=== PATIENT | male | born 1985 | race Caucasian/White ===

== ENCOUNTER 2018-04-21 01:21 | Inpatient (IN) | payer OTHER, MEDICAID ==
[2018-04-21] VITALS (17 sets, daily range): BP systolic 81–130; BP diastolic 50–73; PULSE 90–123; RESP 16–26; TEMP 97.7–99; O2SAT 95–100
[~2018-04-21] VITALS: Ht 193 cm; Wt 118.6 kg
[2018-04-21] MEDS ORDERED: ROCURONIUM INJ 50 MG/5 ML VIAL ONE ×2 (01:54→02:28)
[2018-04-21 01:59] LABS: AUTOMATED NEUTROPHIL # 4.5 TH/MM3 (1.8-7.7); BASOPHIL % 0.7 % (0.0-2.0); EOSINOPHIL % 0.6 % (0.0-4.0); HEMATOCRIT 27.1 % (39.0-51.0); HEMOGLOBIN 9.1 GM/DL (13.0-17.0); LYMPH % 26.1 % (9.0-44.0); LYMPHOCYTE # 1.7 TH/MM3 (1.0-4.8); MEAN CELL VOLUME 94.9 FL (80.0-100.0); MEAN CORPUSCULAR HEMOGLOBIN 31.8 PG (27.0-34.0); MEAN CORPUSCULAR HGB CONC 33.5 % (32.0-36.0); MEAN PLATELET VOLUME 8.4 FL (7.0-11.0); MONO % 4.5 % (0.0-8.0); MONOCYTE # 0.3 TH/MM3 (0-0.9); NEUT % 68.1 % (16.0-70.0); PLATELET COUNT 103 TH/MM3 (150-450); RED BLOOD COUNT 2.85 MIL/MM3 (4.50-5.90); RED CELL DISTRIBUTION WIDTH 13.6 % (11.6-17.2); WHITE BLOOD COUNT 6.6 TH/MM3 (4.0-11.0)
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
[2018-04-21] MEDS ORDERED: PROPOFOL 1000 MG/100 ML INJ 100 ML ONE (02:27)
[2018-04-21 02:41] LABS: INTERNATIONAL NORMALIZED RATIO 1.8 RATIO; PROTHROMBIN TIME - PATIENT 18.7 SEC (9.8-11.6)
[2018-04-21] MEDS ORDERED: IOHEXOL 350 MG/ML 10 ML VIAL (for RAD DIAG) IVCONTRAST ONE (02:45)
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
[2018-04-21] MEDS ORDERED: HEPARIN SODIUM - SQ 10,000 UNITS/ML VIAL ONE ×2 (02:57→04:32)
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
[2018-04-21] MEDS ORDERED: CHLORHEXIDINE GLUCONATE 2 % 1 PACK (2 CLOTHS) TOP PRN (03:30)
[2018-04-21] MEDS ORDERED: LACTULOSE SYRUP 20 GM/30 ML CUP PO PRN (03:30)
[2018-04-21] MEDS ORDERED: MAGNESIUM HYDROXIDE SUSP 30 ML CUP PO PRN (03:30)
[2018-04-21] MEDS ORDERED: BISACODYL 10 MG SUPP RECTAL PRN (03:30)
[2018-04-21] MEDS ORDERED: NURSING INFORMATION XX SCH (03:30)
[2018-04-21] MEDS ORDERED: SENNOSIDES 8.6 MG TAB PO PRN (03:30)
[2018-04-21] MEDS ORDERED: PROPOFOL 1000 MG/100 ML INJ 100 ML IV PRN (03:45)
[2018-04-21] MEDS ORDERED: fentaNYL DRIP 250 ML IV PRN ×2 (03:45→11:45)
[2018-04-21 03:57] LABS: AUTOMATED NEUTROPHIL # 5.5 TH/MM3 (1.8-7.7); BASOPHIL % 0.2 % (0.0-2.0); EOSINOPHIL % 0.4 % (0.0-4.0); HEMATOCRIT 27.2 % (39.0-51.0); HEMOGLOBIN 9.2 GM/DL (13.0-17.0); LYMPHOCYTE # 0.6 TH/MM3 (1.0-4.8); MEAN CELL VOLUME 88.2 FL (80.0-100.0); MEAN CORPUSCULAR HEMOGLOBIN 29.9 PG (27.0-34.0); MEAN PLATELET VOLUME 7.6 FL (7.0-11.0); MONO % 2.4 % (0.0-8.0); MONOCYTE # 0.1 TH/MM3 (0-0.9); PLATELET COUNT 116 TH/MM3 (150-450); RED BLOOD COUNT 3.08 MIL/MM3 (4.50-5.90); RED CELL DISTRIBUTION WIDTH 15.1 % (11.6-17.2); WHITE BLOOD COUNT 6.2 TH/MM3 (4.0-11.0)
[2018-04-21] MEDS ORDERED: cefTRIAXone INJ 2,000 MG in SODIUM CHLORIDE 0.9% INJ 100 ML IV SCH (04:00)
[2018-04-21] MEDS: CHLORHEXIDINE GLUCONATE 2 % 1 PACK (2 CLOTHS) TOP SCH (04:00)
[2018-04-21 04:07] LABS: INTERNATIONAL NORMALIZED RATIO 1.2 RATIO; PROTHROMBIN TIME - PATIENT 12.6 SEC (9.8-11.6)
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
[2018-04-21] MEDS ORDERED: PROTAMINE SULFATE 50 MG/5 ML VIAL ONE (04:32)
[2018-04-21] MEDS ORDERED: CALCIUM CHLORIDE 10% SOLN 1 GRAM/10 ML SYR ONE (04:51)
[2018-04-21 04:59] LABS: BICARBONATE 20.8 MEQ/L (21.0-32.0); CALCIUM 5.9 MG/DL (8.5-10.1); CREATININE 1.32 MG/DL (0.60-1.30)
[2018-04-21] MEDS ORDERED: VECURONIUM BROMIDE 20 MG VIAL ONE (05:18)
[2018-04-21 05:20] LABS: TOTAL PROTEIN 5.2 GM/DL (6.4-8.2)
[2018-04-21 05:26] LABS: CALCIUM-PROTEIN CORRECTED 6.7 MG/DL (8.5-10.1)
[2018-04-21] MEDS ORDERED: TRANEXAMIC ACID INJ 1,000 MG/10 ML AMP ONE (05:36)
[2018-04-21] MEDS ORDERED: RESP: ALBUTEROL 2.5 MG/IPRATROPIUM 0.5 MG NEB (PRN) NEB (06:30)
[2018-04-21] MEDS ORDERED: GLUCAGON 1 MG/ML VIAL OTHER PRN (06:30)
[2018-04-21] MEDS ORDERED: DEXTROSE 50% IN WATER 50 ML VIAL(D50) IV PUSH PRN (06:30)
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
[2018-04-21 07:10] LABS: HEMATOCRIT 25.9 % (39.0-51.0); MEAN CORPUSCULAR HEMOGLOBIN 29.4 PG (27.0-34.0); MEAN CORPUSCULAR HGB CONC 34.6 % (32.0-36.0); MEAN PLATELET VOLUME 7.5 FL (7.0-11.0); PLATELET COUNT 106 TH/MM3 (150-450); RED BLOOD COUNT 3.05 MIL/MM3 (4.50-5.90); RED CELL DISTRIBUTION WIDTH 14.8 % (11.6-17.2); WHITE BLOOD COUNT 6.9 TH/MM3 (4.0-11.0)
[2018-04-21 07:23] LABS: INTERNATIONAL NORMALIZED RATIO 1.2 RATIO; PROTHROMBIN TIME - PATIENT 12.3 SEC (9.8-11.6)
[2018-04-21] MEDS ORDERED: MIDAZOLAM HCL 2 MG/2 ML VIAL ONE (07:25)
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
[2018-04-21 07:51] LABS: BICARBONATE 23.8 MEQ/L (21.0-32.0); CALCIUM 7.7 MG/DL (8.5-10.1); CREATININE 1.2 MG/DL (0.60-1.30)
[2018-04-21 07:59] LABS: BANDS 41 % (0-6); LYMPHOCYTES 2 % (9-44); MONOCYTES 4 % (0-8); NEUTROPHIL # MANUAL DIFF 6.5 TH/MM3 (1.8-7.7); POLYS (SEG NEUTROPHILS) 53 % (16-70)
[2018-04-21] MEDS: INSULIN NovoLIN REGULAR SUPPLEMENTAL SCALE SQ SCH ×4 (08:00→21:00)
[2018-04-21] MEDS: LACTULOSE SYRUP 20 GM/30 ML CUP PO SCH (09:00)
[2018-04-21] MEDS: DOCUSATE SODIUM 50 MG/SENNA 8.6 MG TAB PO SCH ×2 (09:00→20:58)
[2018-04-21] MEDS: FAMOTIDINE 20 MG/2 ML VIAL IV PUSH SCH ×2 (09:00→20:58)
[2018-04-21] MEDS ORDERED: IODIXANOL 320 MG/ML 50 ML VIAL (for RAD SPEC) I-ARTERIAL ONE (09:10)
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
[2018-04-21] MEDS ORDERED: NOREPINEPHRINE-DEXTROSE DRIP 250 ML IV PRN ×2 (09:45→11:45)
[2018-04-21] MEDS ORDERED: TERBUTALINE INJ 1 MG/ML AMP SQ PRN (09:45)
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
[2018-04-21 10:14] LABS: HEMATOCRIT 31.2 % (39.0-51.0); HEMOGLOBIN 10.7 GM/DL (13.0-17.0); MEAN CELL VOLUME 82.9 FL (80.0-100.0); MEAN CORPUSCULAR HEMOGLOBIN 28.5 PG (27.0-34.0); MEAN CORPUSCULAR HGB CONC 34.3 % (32.0-36.0); MEAN PLATELET VOLUME 7.7 FL (7.0-11.0); PLATELET COUNT 73 TH/MM3 (150-450); RED BLOOD COUNT 3.76 MIL/MM3 (4.50-5.90); RED CELL DISTRIBUTION WIDTH 15.3 % (11.6-17.2); WHITE BLOOD COUNT 4.8 TH/MM3 (4.0-11.0)
[2018-04-21] MEDS ORDERED: PROPOFOL 500 MG/50 ML INJ 50 ML ONE (10:21)
[2018-04-21 10:22] LABS: INTERNATIONAL NORMALIZED RATIO 1.3 RATIO; PROTHROMBIN TIME - PATIENT 13.4 SEC (9.8-11.6)
--- NOTE | 2018-04-21 10:31 | PD.ORT.PN ---
Subjective Subjective Remarks POD 0 s/p exfix pelvis and exfix left knee intubated/sedated Objective Vitals Vital Signs Date Time Temp Pulse Resp B/P (MAP) Pulse Ox O2 Delivery O2 Flow Rate FiO2 04/21/18 03:05 100 100 04/21/18 02:20 100 100 04/21/18 02:15 100 100 04/21/18 01:25 100 15.00 100 I/O 04/20/18 04/20/18 04/20/18 04/21/18 04/21/18 04/21/18 07:00 15:00 23:00 07:00 15:00 23:00 Intake Total 7000 ml Output Total 2400 ml Balance 4600 ml Intake Other 7000 ml Output Urine Total 2400 ml Result Diagram: 04/21/18 0958 04/21/18 0640 Other Results Laboratory Tests Test 04/21/18 01:45 04/21/18 03:50 04/21/18 06:40 04/21/18 09:41 Prothromb Time International Ratio 1.8 RATIO 1.2 RATIO 1.2 RATIO 1.3 RATIO Prothrombin Time 18.7 SEC (9.8-11.6) 12.6 SEC (9.8-11.6) 12.3 SEC (9.8-11.6) 13.4 SEC (9.8-11.6) Imaging Last [address] 04/21/18149 Signed Impressions: CONCLUSION: 1. No acute thoracic spine injury identified. Maxillofacial CT 04/21/18149 Signed Impressions: CONCLUSION: 1. Right frontal calvarial fracture and numerous facial fractures as above, re latively nondisplaced. Lumbar Spine CT 04/21/18149 Signed Impressions: CONCLUSION: 1. Left-sided L4 and L5 transverse process fractures. No vertebral body fractu re or subluxation. Pelvic fractures as above. Head CT 04/21/18123 Signed Impressions: CONCLUSION: 1. Right frontal skull fracture extending through right frontal sinus with pne umocephalus as above. No significant intracranial hemorrhage or mass effect. Ri ght-sided scalp hemorrhage. Femur X-Ray 04/21/18123 Signed Impressions: CONCLUSION: No femur fracture identified. Displaced left pubic and rami fractures with altamirano tasis at sacroiliac joints. Chest CT 04/21/18123 Signed Impressions: CONCLUSION: 1. Negative for acute intrathoracic injury. Endotracheal tube in good position . Air in the thoracic spinal canal. Cervical Spine CT 04/21/18123 Signed Impressions: CONCLUSION: 1. Negative for acute cervical spine fracture. No subluxation. Abdomen/Pelvis CT 04/21/18123 Signed Impressions: CONCLUSION: 1. Severe bilateral pelvic fractures as above with bilateral sacroiliac diasta ses. Large right pelvic sidewall hematoma with active extravasation. 2. Extensive air in the superficial and deep soft tissues likely related to op en wound anteriorly. There also appears to be some air within venous structures . Air within the spinal canal could be within venous structures or may have dis sected cephalad from inferior open wound. Pelvis X-Ray 04/21/18121 Signed Impressions: CONCLUSION: Bilateral pelvic fractures as above. Chest X-Ray 04/21/18121 Signed Impressions: CONCLUSION: Endotracheal tube in good position. No acute findings. Left costophrenic phreni c angle clipped. Knee X-Ray 04/21/18 Signed Impressions: CONCLUSION: Avulsion fracture left distal femur or patella. Left fibular head fracture. Abdomen X-Ray 04/21/18 Signed Impressions: CONCLUSION: 1. 2 retained surgical sponges projected over the sacrum and upper pelvis. 2. Multiple pelvic fractures with diastases of the symphysis pubis and sacroil iac joints. 3. Balloon pump in place as well as multiple embolization coils. These findings were called Katie in the operating room who stated that the surge on was aware of the retained sponges. Objective Remarks pelvis: exfix in place. pin sites clean LLE: exfix in place. pin sites clean. soft dressings in place. dressings in place over groin Assessment & Plan Assessment and Plan 1) Unstable pelvic ring disruption 2) Left Knee dislocation with popliteal artery disruption and multiple ligamentous disruptions 3) Open Left groin wound -pin care BID to pelvis and left leg external fixators -dressings to left leg per Dr Moyer protocol -Patient will need fixation of pelvis at later date when stable -will also knee left knee ligamentous reconstruction. this will be give to Dr Verduzco to evaluate. however, patient not in condition to proceed -NWB BLE -will follow Mane Chavez/Gastrointestinal Technician PA Apr 21, 2018 10:30
[2018-04-21] MEDS: CHLORHEXIDINE 0.12% (ORAL KIT) 15 ML CUP MT SCH ×2 (11:00→20:55)
[2018-04-21] MEDS ORDERED: NOREPINEPHRINE-DEXTROSE DRIP 250 ML IV ONE (11:19)
[2018-04-21] MEDS: LACTATED RINGER'S 1000 ML INJ 1,000 ML IV SCH ×6 (11:30→22:30)
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
[2018-04-21] MEDS ORDERED: NORMOSOL R INJ 1,000 ML IV ONE (12:00)
[2018-04-21] MEDS ORDERED: ROCURONIUM INJ 50 MG/5 ML SYRINGE IV PUSH ONE (12:00)
[2018-04-21] MEDS ORDERED: DEXAMETHASONE SOD PHOS 4 MG/ML VIAL IV ONE (12:00)
[2018-04-21] MEDS ORDERED: PROPOFOL 200 MG/20 ML AMP IV ONE (12:00)
[2018-04-21] MEDS ORDERED: PHENYLEPHRINE HCL 10 MG/ML VIAL IV ONE (12:00)
[2018-04-21] MEDS ORDERED: ceFAZolin INJ 1,000 MG VIAL IV ONE (12:00)
[2018-04-21] MEDS ORDERED: PHENYLEPH/NS 1000 MCG/10 ML SYR IV ONE (12:00)
[2018-04-21] MEDS ORDERED: VECURONIUM BROMIDE 20 MG VIAL IV ONE (12:00)
[2018-04-21 12:49] LABS: AUTOMATED NEUTROPHIL # 6.3 TH/MM3 (1.8-7.7); BASOPHIL % 0.1 % (0.0-2.0); HEMATOCRIT 35.2 % (39.0-51.0); LYMPH % 4.8 % (9.0-44.0); LYMPHOCYTE # 0.3 TH/MM3 (1.0-4.8); MEAN CELL VOLUME 84.4 FL (80.0-100.0); MEAN CORPUSCULAR HEMOGLOBIN 28.9 PG (27.0-34.0); MEAN CORPUSCULAR HGB CONC 34.2 % (32.0-36.0); MEAN PLATELET VOLUME 8.5 FL (7.0-11.0); MONO % 5.2 % (0.0-8.0); MONOCYTE # 0.4 TH/MM3 (0-0.9); NEUT % 89.9 % (16.0-70.0); PLATELET COUNT 96 TH/MM3 (150-450); RED BLOOD COUNT 4.17 MIL/MM3 (4.50-5.90); RED CELL DISTRIBUTION WIDTH 15.6 % (11.6-17.2)
[2018-04-21 13:04] LABS: INTERNATIONAL NORMALIZED RATIO 1.2 RATIO; PROTHROMBIN TIME - PATIENT 12.6 SEC (9.8-11.6)
[2018-04-21] MEDS: PROPOFOL 1000 MG/100 ML INJ 100 ML IV PRN ×3 (13:08→20:53)
[2018-04-21] MEDS: fentaNYL DRIP 250 ML IV PRN (13:12)
[2018-04-21 13:15] LABS: BICARBONATE 23.4 MEQ/L (21.0-32.0); CALCIUM 7.9 MG/DL (8.5-10.1); CREATININE 1.54 MG/DL (0.60-1.30)
[2018-04-21] MEDS: NOREPINEPHRINE-DEXTROSE DRIP 250 ML IV PRN ×2 (13:15→20:50)
[2018-04-21 13:28] LABS: BANDS 28 % (0-6); CORRECTED NUCLEATED RBC 1 /100 WBC (0-0); LYMPHOCYTES 2 % (9-44); METAMYELOCYTES 2 % (0-1); MONOCYTES 1 % (0-8); MYELOCYTES 1 % (0-0); NEUTROPHIL # MANUAL DIFF 6.8 TH/MM3 (1.8-7.7); NUCLEATED RED BLOOD CELL 1 (0-0); POLYS (SEG NEUTROPHILS) 66 % (16-70)
[2018-04-21 13:31] LABS: ACANTHOCYTES OCC (NORMAL)
[2018-04-21 13:32] LABS: LACTIC ACID SEPSIS PROTOCOL 9.9 mmol/L (0.4-2.0)
[2018-04-21] MEDS ORDERED: ACETAMINOPHEN 1000 MG/100 ML 100 ML IV PRN (14:00)
[2018-04-21] MEDS ORDERED: GENTAMICIN 80 MG PREMIX 100 ML IV SCH (15:00)
[2018-04-21] MEDS: RESP: ALBUTEROL 2.5 MG/IPRATROPIUM 0.5 MG NEB (SCH) NEB ×2 (15:35→20:29)
[2018-04-21] MEDS: levETIRAcetam INJ 500 MG in SODIUM CHLORIDE 0.9% INJ 100 ML IV SCH ×2 (15:50→20:58)
[2018-04-21] MEDS: ceFAZolin 2 GM PREMIX 50 ML IV SCH ×2 (15:50→21:08)
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
[2018-04-21 16:48] LABS: AUTOMATED NEUTROPHIL # 6.9 TH/MM3 (1.8-7.7); HEMATOCRIT 32.7 % (39.0-51.0); HEMOGLOBIN 11.2 GM/DL (13.0-17.0); LYMPH % 3.6 % (9.0-44.0); LYMPHOCYTE # 0.3 TH/MM3 (1.0-4.8); MEAN CELL VOLUME 84.1 FL (80.0-100.0); MEAN CORPUSCULAR HEMOGLOBIN 28.7 PG (27.0-34.0); MEAN CORPUSCULAR HGB CONC 34.1 % (32.0-36.0); MEAN PLATELET VOLUME 8.6 FL (7.0-11.0); MONO % 5.8 % (0.0-8.0); MONOCYTE # 0.4 TH/MM3 (0-0.9); NEUT % 90.6 % (16.0-70.0); PLATELET COUNT 77 TH/MM3 (150-450); RED BLOOD COUNT 3.89 MIL/MM3 (4.50-5.90); RED CELL DISTRIBUTION WIDTH 15.8 % (11.6-17.2); WHITE BLOOD COUNT 7.7 TH/MM3 (4.0-11.0)
[2018-04-21 16:54] LABS: INTERNATIONAL NORMALIZED RATIO 1.2 RATIO; PROTHROMBIN TIME - PATIENT 12.6 SEC (9.8-11.6)
--- NOTE | 2018-04-21 17:05 | PD.OP ---
Operative Report Date of Surgery: Apr 21, 2018 Preoperative Diagnosis: (1) Traumatic brain injury Traumatic brain injury Postoperative Diagnosis: (1) Traumatic brain injury Traumatic brain injury Procedure: Right frontal twist drill for ICP pressure monitor placement Anesthesia: IV Sedation 1% xylocaine local Surgeon: Sudheer Duvall Client Support Manager(s): none Operation and Findings: The procedure was performed in the surgical intensive care unit. The findings were discussed with the family and informed consent obtained. Appropriate timeout procedure was performed with all personnel present and in agreement The patient was given intravenous sedation during the procedure. The head of the bed was elevated 20 with the head and neck in neutral position. The right frontal area was shaved with clippers and sterilely prepped and draped. 1% Xylocaine with epinephrine was used for local infiltration over the small incision site which was made in the right frontal region approximately 1 cm anterior to the coronal suture in the mid pupillary line and carried sharply down to the cranium. The hand drill was used to place a single twist drill opening in the cranium and the dura was perforated with the 18-gauge spinal needle. The ICP bolt was secured to the cranium. The transducer was zeroed and placed intracranially and secured to the bolt. The patient's initial ICP was 2-3 cm water with good waveform. A sterile dressing was applied There is no significant bleeding The patient's neurologic exam remained stable following the procedure. Sudheer Duvall MD Apr 21, 2018 17:05
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
[2018-04-21 17:18] LABS: BICARBONATE 20.1 MEQ/L (21.0-32.0); CALCIUM 7.4 MG/DL (8.5-10.1); CREATININE 1.72 MG/DL (0.60-1.30)
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
[2018-04-21 17:45] LABS: CALCIUM-PROTEIN CORRECTED 8.8 MG/DL (8.5-10.1); TOTAL PROTEIN 4.6 GM/DL (6.4-8.2)
[2018-04-21] MEDS: GENTAMICIN INJ 80 MG in SODIUM CHLORIDE 0.9% INJ 100 ML IV SCH (17:45)
[2018-04-21 18:03] LABS: BANDS 45 % (0-6); LYMPHOCYTES 3 % (9-44); NEUTROPHIL # MANUAL DIFF 7.5 TH/MM3 (1.8-7.7); POLYS (SEG NEUTROPHILS) 52 % (16-70)
[2018-04-21 20:55] LABS: AUTOMATED NEUTROPHIL # 6.4 TH/MM3 (1.8-7.7); BASOPHIL % 0.1 % (0.0-2.0); HEMATOCRIT 25.6 % (39.0-51.0); HEMOGLOBIN 8.9 GM/DL (13.0-17.0); LYMPH % 3.9 % (9.0-44.0); LYMPHOCYTE # 0.3 TH/MM3 (1.0-4.8); MEAN CELL VOLUME 83.5 FL (80.0-100.0); MEAN CORPUSCULAR HGB CONC 34.8 % (32.0-36.0); MEAN PLATELET VOLUME 8.6 FL (7.0-11.0); MONO % 4.4 % (0.0-8.0); MONOCYTE # 0.3 TH/MM3 (0-0.9); NEUT % 91.6 % (16.0-70.0); PLATELET COUNT 80 TH/MM3 (150-450); RED BLOOD COUNT 3.06 MIL/MM3 (4.50-5.90); RED CELL DISTRIBUTION WIDTH 15.8 % (11.6-17.2)
[2018-04-21 20:59] LABS: INTERNATIONAL NORMALIZED RATIO 1.2 RATIO
[2018-04-21 21:05] LABS: BICARBONATE 21.1 MEQ/L (21.0-32.0); CALCIUM 7.3 MG/DL (8.5-10.1); CREATININE 1.89 MG/DL (0.60-1.30)
[2018-04-21 21:17] LABS: CALCIUM-PROTEIN CORRECTED 8.5 MG/DL (8.5-10.1); TOTAL PROTEIN 4.9 GM/DL (6.4-8.2)
[2018-04-21 22:32] LABS: BANDS 37 % (0-6); LYMPHOCYTES 2 % (9-44); MONOCYTES 3 % (0-8); NEUTROPHIL # MANUAL DIFF 6.7 TH/MM3 (1.8-7.7); POLYS (SEG NEUTROPHILS) 58 % (16-70)
[2018-04-21] MEDS ORDERED: SODIUM CHLOR 0.9% 1000 ML INJ 1,000 ML IV ONE (23:30)
[2018-04-22] VITALS (21 sets, daily range): BP systolic 112–138; BP diastolic 47–57; PULSE 79–96; RESP 18; TEMP 96.8–100.2; O2SAT 97–100
[2018-04-22] MEDS ORDERED: LIDOCAINE 2%/EPINEPHrine 1:100,000 20ML MDV I-DERMAL SCH
[2018-04-22 00:28] LABS: AUTOMATED NEUTROPHIL # 6.4 TH/MM3 (1.8-7.7); BASOPHIL % 0.1 % (0.0-2.0); HEMATOCRIT 26.2 % (39.0-51.0); HEMOGLOBIN 9.3 GM/DL (13.0-17.0); LYMPH % 4.7 % (9.0-44.0); LYMPHOCYTE # 0.3 TH/MM3 (1.0-4.8); MEAN CELL VOLUME 83.8 FL (80.0-100.0); MEAN CORPUSCULAR HEMOGLOBIN 29.7 PG (27.0-34.0); MEAN CORPUSCULAR HGB CONC 35.4 % (32.0-36.0); MEAN PLATELET VOLUME 8.2 FL (7.0-11.0); MONO % 4.9 % (0.0-8.0); MONOCYTE # 0.3 TH/MM3 (0-0.9); NEUT % 90.3 % (16.0-70.0); PLATELET COUNT 59 TH/MM3 (150-450); RED BLOOD COUNT 3.12 MIL/MM3 (4.50-5.90); RED CELL DISTRIBUTION WIDTH 15.1 % (11.6-17.2); WHITE BLOOD COUNT 7.1 TH/MM3 (4.0-11.0)
[2018-04-22] MEDS: PROPOFOL 1000 MG/100 ML INJ 100 ML IV PRN ×5 (00:31→20:39)
[2018-04-22] MEDS: GENTAMICIN INJ 80 MG in SODIUM CHLORIDE 0.9% INJ 100 ML IV SCH ×3 (00:31→17:41)
[2018-04-22 00:52] LABS: INTERNATIONAL NORMALIZED RATIO 1.3 RATIO; PROTHROMBIN TIME - PATIENT 13.2 SEC (9.8-11.6)
[2018-04-22 00:59] LABS: BICARBONATE 20.5 MEQ/L (21.0-32.0); CALCIUM 6.5 MG/DL (8.5-10.1); CREATININE 1.78 MG/DL (0.60-1.30)
[2018-04-22 01:13] LABS: TOTAL PROTEIN 4.2 GM/DL (6.4-8.2)
[2018-04-22 01:18] LABS: BANDS 20 % (0-6); LYMPHOCYTES 6 % (9-44); NEUTROPHIL # MANUAL DIFF 6.7 TH/MM3 (1.8-7.7); POLYS (SEG NEUTROPHILS) 74 % (16-70)
[2018-04-22 01:20] LABS: DOHLE BODIES PRESENT (NONE SEEN); TOXIC VACUOLATION PRESENT (NONE SEEN)
[2018-04-22] MEDS ORDERED: SODIUM CHLORID 0.9% 500 ML INJ 500 ML IV ONE (02:30)
[2018-04-22] MEDS ORDERED: CALCIUM GLUCONATE INJ 1 GM in SODIUM CHLORIDE 0.9% INJ 100 ML IV ONE (02:30)
[2018-04-22] MEDS: RESP: ALBUTEROL 2.5 MG/IPRATROPIUM 0.5 MG NEB (SCH) NEB ×4 (02:54→20:46)
[2018-04-22] MEDS: CHLORHEXIDINE GLUCONATE 2 % 1 PACK (2 CLOTHS) TOP SCH (03:35)
[2018-04-22 04:22] LABS: AUTOMATED NEUTROPHIL # 9.1 TH/MM3 (1.8-7.7); BASOPHIL % 0.1 % (0.0-2.0); HEMATOCRIT 26.8 % (39.0-51.0); HEMOGLOBIN 9.4 GM/DL (13.0-17.0); LYMPH % 4.4 % (9.0-44.0); LYMPHOCYTE # 0.4 TH/MM3 (1.0-4.8); MEAN CELL VOLUME 83.4 FL (80.0-100.0); MEAN CORPUSCULAR HEMOGLOBIN 29.3 PG (27.0-34.0); MEAN CORPUSCULAR HGB CONC 35.2 % (32.0-36.0); MEAN PLATELET VOLUME 7.8 FL (7.0-11.0); MONO % 3.1 % (0.0-8.0); MONOCYTE # 0.3 TH/MM3 (0-0.9); NEUT % 92.4 % (16.0-70.0); PLATELET COUNT 108 TH/MM3 (150-450); RED BLOOD COUNT 3.22 MIL/MM3 (4.50-5.90); RED CELL DISTRIBUTION WIDTH 15.3 % (11.6-17.2); WHITE BLOOD COUNT 9.8 TH/MM3 (4.0-11.0)
[2018-04-22 04:33] LABS: INTERNATIONAL NORMALIZED RATIO 1.3 RATIO; PROTHROMBIN TIME - PATIENT 13.4 SEC (9.8-11.6)
--- NOTE | 2018-04-22 04:55 | RADRPT ---
EXAM DATE: 04/22/2018 4:31 AM EDT AGE/SEX: 32 years / Male INDICATIONS: Shortness of breath CLINICAL DATA: This is the patient's subsequent encounter. Patient reports that signs and symptoms h ave been present for 2 days and indicates a pain score of Nonresponsive. MEDICAL/SURGICAL HISTORY: None. None. COMPARISON: [facility] [place], CHEST SINGLE AP, 04/21/2018. . FINDINGS: The ET tube, NG tube and right subclavian line are well placed. The heart size is normal. The lungs a re clear. CONCLUSION: No acute abnormality is seen. Electronically signed by: Bib Chu MD 04/22/2018 4:54 AM EDT
[2018-04-22 04:58] LABS: CALCIUM 6.4 MG/DL (8.5-10.1); CREATININE 2.06 MG/DL (0.60-1.30); MAGNESIUM 1.7 MG/DL (1.5-2.5)
[2018-04-22] MEDS: fentaNYL DRIP 250 ML IV PRN ×2 (05:01→17:39)
[2018-04-22] MEDS: ceFAZolin 2 GM PREMIX 50 ML IV SCH ×3 (05:05→20:38)
[2018-04-22 05:11] LABS: CALCIUM-PROTEIN CORRECTED 7.9 MG/DL (8.5-10.1); TOTAL PROTEIN 4.1 GM/DL (6.4-8.2)
[2018-04-22] MEDS ORDERED: LIDOCAINE 1%/EPINEPHrine 1:100,000 SOLN 30 ML VIAL ONE (07:40)
[2018-04-22] MEDS: CHLORHEXIDINE 0.12% (ORAL KIT) 15 ML CUP MT SCH ×2 (07:43→20:39)
[2018-04-22] MEDS: INSULIN NovoLIN REGULAR SUPPLEMENTAL SCALE SQ SCH ×4 (07:43→20:40)
[2018-04-22] MEDS: levETIRAcetam INJ 500 MG in SODIUM CHLORIDE 0.9% INJ 100 ML IV SCH ×2 (07:44→20:39)
[2018-04-22] MEDS: DOCUSATE SODIUM 50 MG/SENNA 8.6 MG TAB PO SCH ×2 (07:44→20:39)
[2018-04-22] MEDS: LACTULOSE SYRUP 20 GM/30 ML CUP PO SCH (07:44)
[2018-04-22] MEDS: FAMOTIDINE 20 MG/2 ML VIAL IV PUSH SCH ×2 (07:44→20:39)
--- NOTE | 2018-04-22 08:16 | PD.ORT.PN ---
Subjective Subjective Remarks Patient in ISC. Intubated Objective Vitals Vital Signs Date Time Temp Pulse Resp B/P (MAP) Pulse Ox O2 Delivery O2 Flow Rate FiO2 04/22/18 08:02 97 35 04/22/18 07:00 97 Mechanical Ventilator 35 04/22/18 06:00 96 04/22/18 04:30 98 35 04/22/18 04:00 35 04/22/18 04:00 97.9 89 18 129/56 (80) 97 04/22/18 04:00 89 04/22/18 03:40 97.5 89 18 128/53 98 04/22/18 02:33 96.8 82 18 112/51 100 04/22/18 02:00 80 04/22/18 00:00 35 04/22/18 00:00 97.3 83 18 114/57 (76) 100 04/22/18 00:00 83 04/21/18 23:37 100 35 04/21/18 22:00 90 04/21/18 20:50 97 137/65 04/21/18 20:26 100 40 04/21/18 20:16 98.4 99 18 130/73 100 04/21/18 20:00 98.2 98 18 122/68 (86) 100 04/21/18 20:00 98 04/21/18 20:00 40 04/21/18 19:00 100 Mechanical Ventilator 40 04/21/18 18:51 98.8 104 19 96/60 100 04/21/18 18:38 98.8 104 19 99/61 100 04/21/18 17:47 98.8 107 18 81/50 100 04/21/18 17:28 99.0 110 18 82/56 99 04/21/18 17:00 40 04/21/18 16:00 98.9 113 16 82/54 (63) 96 04/21/18 15:36 95 40 04/21/18 13:20 40 04/21/18 13:15 123 86/54 04/21/18 12:10 99 45 04/21/18 12:00 97.7 123 26 109/61 (77) 100 04/21/18 12:00 45 04/21/18 10:20 75 04/21/18 10:00 100 I/O 6/1/18 6/104/21/18 04/22/18 04/22/18 04/22/18 07:00 15:00 23:00 07:00 15:00 23:00 Intake Total 8050 ml 4662 ml 5398 ml Output Total 3400 ml 715 ml Balance 4650 ml 4662 ml 4683 ml Intake IV Total 1050 ml 3354 ml 2212 ml Packed Cells 1200 ml FFP 643 ml Platelets 289 ml 486 ml Cryoprecipitate 216 ml Blood Product IV Normal Saline Flush 160 ml 1500 ml Other 7000 ml Output Urine Total 2900 ml 15 ml Stool Total 0 ml Gastric Drainage Total 0 ml Drainage Total 500 ml 700 ml Result Diagram: 04/22/18 0400 04/22/18 0400 Other Results Laboratory Tests Test 04/21/18 09:41 04/21/18 12:00 04/21/18 16:20 04/21/18 20:15 Prothromb Time International Ratio 1.3 RATIO 1.2 RATIO 1.2 RATIO 1.2 RATIO Prothrombin Time 13.4 SEC (9.8-11.6) 12.6 SEC (9.8-11.6) 12.6 SEC (9.8-11.6) 12.0 SEC (9.8-11.6) Test 04/22/18 00:15 04/22/18 04:00 Prothromb Time International Ratio 1.3 RATIO 1.3 RATIO Prothrombin Time 13.2 SEC (9.8-11.6) 13.4 SEC (9.8-11.6) Imaging Last 24 hours Impressions [address] Spine CT 04/21/18149 Signed Impressions: CONCLUSION: 1. No acute thoracic spine injury identified. Maxillofacial CT 04/21/18149 Signed Impressions: CONCLUSION: 1. Right frontal calvarial fracture and numerous facial fractures as above, re latively nondisplaced. Lumbar Spine CT 04/21/18149 Signed Impressions: CONCLUSION: 1. Left-sided L4 and L5 transverse process fractures. No vertebral body fractu re or subluxation. Pelvic fractures as above. Head CT 04/21/18123 Signed Impressions: CONCLUSION: 1. Right frontal skull fracture extending through right frontal sinus with pne umocephalus as above. No significant intracranial hemorrhage or mass effect. Ri ght-sided scalp hemorrhage. Femur X-Ray 04/21/18123 Signed Impressions: CONCLUSION: No femur fracture identified. Displaced left pubic and rami fractures with altamirano tasis at sacroiliac joints. Chest CT 04/21/18123 Signed Impressions: CONCLUSION: 1. Negative for acute intrathoracic injury. Endotracheal tube in good position . Air in the thoracic spinal canal. Cervical Spine CT 04/21/18123 Signed Impressions: CONCLUSION: 1. Negative for acute cervical spine fracture. No subluxation. Abdomen/Pelvis CT 04/21/18123 Signed Impressions: CONCLUSION: 1. Severe bilateral pelvic fractures as above with bilateral sacroiliac diasta ses. Large right pelvic sidewall hematoma with active extravasation. 2. Extensive air in the superficial and deep soft tissues likely related to op en wound anteriorly. There also appears to be some air within venous structures . Air within the spinal canal could be within venous structures or may have dis sected cephalad from inferior open wound. Pelvis X-Ray 04/21/18121 Signed Impressions: CONCLUSION: Bilateral pelvic fractures as above. Chest X-Ray 04/21/18121 Signed Impressions: CONCLUSION: Endotracheal tube in good position. No acute findings. Left costophrenic phreni c angle clipped. Knee X-Ray 04/21/18 Signed Impressions: CONCLUSION: Avulsion fracture left distal femur or patella. Left fibular head fracture. Abdomen X-Ray 04/21/18 Signed Impressions: CONCLUSION: 1. 2 retained surgical sponges projected over the sacrum and upper pelvis. 2. Multiple pelvic fractures with diastases of the symphysis pubis and sacroil iac joints. 3. Balloon pump in place as well as multiple embolization coils. These findings were called Katie in the operating room who stated that the surge on was aware of the retained sponges. Objective Remarks pelvis: exfix in place. pin sites clean LLE: exfix in place. pin sites clean. soft dressings in place. dressings in place over groin Left upper extremity no crepitus or significant swelling of the shoulder elbow or wrist. Mild swelling of the left elbow but no instability or crepitus. Right upper extremity: No crepitus or significant swelling of the shoulder, elbow or wrist. Right lower extremity no abnormal swelling of the hip. Mild effusion of the right knee but no instability or crepitus. No crepitus of the ankle Assessment & Plan Assessment and Plan 1) Unstable pelvic ring disruption 2) Left Knee dislocation with popliteal artery disruption and multiple ligamentous disruptions 3) Open Left groin wound Surgery: Closed reduction and external fixation pelvis, closed reduction and external fixation left knee: POD #1 -pin care BID to pelvis and left leg external fixators -dressings to left leg per Dr Moyer protocol -Patient will need fixation of pelvis at later date when stable -will also knee left knee ligamentous reconstruction. this will be give to Dr Verduzco to evaluate. however, patient not in condition to proceed -NWB BLE -will follow James Michael MD Apr 22, 2018 08:16
[2018-04-22 08:22] LABS: AUTOMATED NEUTROPHIL # 8.7 TH/MM3 (1.8-7.7); BASOPHIL % 0.1 % (0.0-2.0); EOSINOPHIL % 0.1 % (0.0-4.0); HEMOGLOBIN 9.7 GM/DL (13.0-17.0); LYMPH % 4.4 % (9.0-44.0); LYMPHOCYTE # 0.4 TH/MM3 (1.0-4.8); MEAN CELL VOLUME 83.5 FL (80.0-100.0); MEAN PLATELET VOLUME 8.2 FL (7.0-11.0); MONO % 4.2 % (0.0-8.0); MONOCYTE # 0.4 TH/MM3 (0-0.9); NEUT % 91.2 % (16.0-70.0); PLATELET COUNT 124 TH/MM3 (150-450); RED BLOOD COUNT 3.24 MIL/MM3 (4.50-5.90); RED CELL DISTRIBUTION WIDTH 15.2 % (11.6-17.2); WHITE BLOOD COUNT 9.6 TH/MM3 (4.0-11.0)
[2018-04-22 08:31] LABS: INTERNATIONAL NORMALIZED RATIO 1.3 RATIO
[2018-04-22 08:55] LABS: BICARBONATE 20.3 MEQ/L (21.0-32.0); CALCIUM 6.6 MG/DL (8.5-10.1); CREATININE 2.38 MG/DL (0.60-1.30)
--- NOTE | 2018-04-22 09:04 | HHI.PR ---
Immediate Post Op Note Procedure Date: Apr 22, 2018 Pre Op Diagnosis: right forehead soft tissue injury 3 cm x 3cm Post Op Diagnosis: chris Surgeon: Hesham Mireles Medical Equipment Repair Technician(s): pt's nurse Henrry Procedure: closure of right forehead complex soft tissue injury Complications: none Anesthesia: Local (1:lidocaine with 1:100,000 epi 4 cc) Drains: None Patient to: ISC Patient Condition: Critical Date/Time of Procedure: SEE SURGICAL CARE RECORD Heshma Mireels DMD Apr 22, 2018 09:04
[2018-04-22 09:15] LABS: CALCIUM-PROTEIN CORRECTED 7.9 MG/DL (8.5-10.1); TOTAL PROTEIN 4.5 GM/DL (6.4-8.2)
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
[2018-04-22] MEDS: LACTATED RINGER'S 1000 ML INJ 1,000 ML IV SCH ×4 (09:58→22:46)
[2018-04-22] MEDS ORDERED: LACTATED RINGER'S 1000 ML INJ 1,000 ML IV ONE (10:00)
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
[2018-04-22 11:53] LABS: BANDS 47 % (0-6); LYMPHOCYTES 4 % (9-44); NEUTROPHIL # MANUAL DIFF 9.2 TH/MM3 (1.8-7.7); POLYS (SEG NEUTROPHILS) 49 % (16-70)
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
[2018-04-22] MEDS: NOREPINEPHRINE-DEXTROSE DRIP 250 ML IV PRN (13:26)
--- NOTE | 2018-04-22 14:36 | RADRPT ---
EXAM DATE: 04/22/2018 2:31 PM EDT AGE/SEX: 32 years / Male INDICATIONS: Ex fix. CLINICAL DATA: This is the patient's initial encounter. Patient reports that signs and symptoms have been present for 1 day and indicates a pain score of Nonresponsive. MEDICAL/SURGICAL HISTORY: None. None. COMPARISON: [facility] [place], CT ABDOMEN & PELVIS W CONTRAST, 04/21/2018. . FINDINGS: Comminuted pelvic fractures are again noted in unchanged alignment. External fixation has been placed . CONCLUSION: Interim external fixation of comminuted pelvic fractures. No acute complication demonstrated. Electronically signed by: Bib De Jesus MD 04/22/2018 2:34 PM EDT
--- NOTE | 2018-04-22 14:38 | RADRPT ---
EXAM DATE: 04/22/2018 2:28 PM EDT AGE/SEX: 32 years / Male INDICATIONS: Ex fix. CLINICAL DATA: This is the patient's initial encounter. Patient reports that signs and symptoms have been present for 1 day and indicates a pain score of Nonresponsive. MEDICAL/SURGICAL HISTORY: None. None. COMPARISON: [facility] [place], [facility]EE [facility] (1 OR 2VWS), 04/21/2018. . FINDINGS: Several skin warren are now present. There is a fracture of the fibular head with near-anatomic alig nment. Suspected fracturing laterally of the lateral femoral condyle. There is evidence of knee insta bility with application of varus and valgus forces. CONCLUSION: Unstable knee during varus and valgus. Fractured fibular head and suspected fracture laterally of the lateral femoral condyle. Electronically signed by: Bib De Jesus MD 04/22/2018 2:37 PM EDT
[2018-04-22] MEDS ORDERED: [UNRECOGNIZED DRUG - OTHER] (15:25)
[2018-04-22 18:14] LABS: HEMATOCRIT 25.7 % (39.0-51.0); HEMOGLOBIN 9.1 GM/DL (13.0-17.0)
[2018-04-23] VITALS (18 sets, daily range): BP systolic 117–143; BP diastolic 39–60; PULSE 66–99; RESP 18–22; TEMP 98.8–100.6; O2SAT 96–99
[2018-04-23] MEDS: GENTAMICIN INJ 80 MG in SODIUM CHLORIDE 0.9% INJ 100 ML IV SCH ×3 (01:30→20:13)
[2018-04-23] MEDS: PROPOFOL 1000 MG/100 ML INJ 100 ML IV PRN ×5 (01:31→20:48)
[2018-04-23] MEDS: fentaNYL DRIP 250 ML IV PRN ×3 (01:33→22:04)
[2018-04-23] MEDS: RESP: ALBUTEROL 2.5 MG/IPRATROPIUM 0.5 MG NEB (SCH) NEB ×4 (03:27→20:00)
[2018-04-23] MEDS: CHLORHEXIDINE GLUCONATE 2 % 1 PACK (2 CLOTHS) TOP SCH (04:00)
[2018-04-23] MEDS: LACTATED RINGER'S 1000 ML INJ 1,000 ML IV SCH ×2 (04:58→09:46)
[2018-04-23] MEDS: ceFAZolin 2 GM PREMIX 50 ML IV SCH ×3 (04:58→21:51)
[2018-04-23] MEDS: NOREPINEPHRINE-DEXTROSE DRIP 250 ML IV PRN (04:58)
[2018-04-23 06:43] LABS: AUTOMATED NEUTROPHIL # 6.3 TH/MM3 (1.8-7.7); BASOPHIL % 0.3 % (0.0-2.0); HEMATOCRIT 22.7 % (39.0-51.0); HEMOGLOBIN 8.1 GM/DL (13.0-17.0); LYMPH % 5.2 % (9.0-44.0); LYMPHOCYTE # 0.4 TH/MM3 (1.0-4.8); MEAN CELL VOLUME 83.4 FL (80.0-100.0); MEAN CORPUSCULAR HEMOGLOBIN 29.9 PG (27.0-34.0); MEAN CORPUSCULAR HGB CONC 35.8 % (32.0-36.0); MEAN PLATELET VOLUME 8.3 FL (7.0-11.0); MONO % 2.5 % (0.0-8.0); MONOCYTE # 0.2 TH/MM3 (0-0.9); PLATELET COUNT 91 TH/MM3 (150-450); RED BLOOD COUNT 2.73 MIL/MM3 (4.50-5.90); RED CELL DISTRIBUTION WIDTH 15.6 % (11.6-17.2); WHITE BLOOD COUNT 6.9 TH/MM3 (4.0-11.0)
[2018-04-23 07:24] LABS: BICARBONATE 17.6 MEQ/L (21.0-32.0); CALCIUM 6.5 MG/DL (8.5-10.1); CREATININE 4.28 MG/DL (0.60-1.30)
--- NOTE | 2018-04-23 07:34 | PD.ORT.PN ---
Subjective Subjective Remarks Patient in ISC. 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 Objective Vitals Vital Signs Date Time Temp Pulse Resp B/P (MAP) Pulse Ox O2 Delivery O2 Flow Rate FiO2 04/23/18 06:00 94 04/23/18 04:58 128/46 04/23/18 04:00 98 04/23/18 04:00 35 04/23/18 04:00 100.6 98 18 117/39 (65) 98 04/23/18 03:27 98 35 04/23/18 02:00 92 04/23/18 00:00 92 04/23/18 00:00 35 04/23/18 00:00 99.5 92 18 135/49 (77) 98 04/22/18 23:32 98 35 04/22/18 22:00 93 04/22/18 20:46 99 35 04/22/18 20:00 99.0 86 18 124/54 (77) 99 04/22/18 20:00 35 04/22/18 20:00 86 04/22/18 18:00 82 04/22/18 16:36 92 134/53 04/22/18 16:00 35 04/22/18 16:00 98.1 91 18 133/51 (78) 99 04/22/18 16:00 92 04/22/18 15:53 99 35 04/22/18 15:15 78 132/62 04/22/18 14:17 82 152/73 04/22/18 14:00 79 04/22/18 13:26 78 138/60 04/22/18 12:00 98.6 90 18 138/52 (80) 98 04/22/18 12:00 90 04/22/18 12:00 35 04/22/18 11:14 97 35 04/22/18 10:00 85 04/22/18 09:30 99 100 04/22/18 08:02 97 35 04/22/18 08:00 92 04/22/18 08:00 35 04/22/18 08:00 100.2 92 18 122/47 (72) 98 I/O 04/22/1804/22/18 04/22/18 04/23/18 04/23/18 04/23/18 07:00 15:00 23:00 07:00 15:00 23:00 Intake Total 5398 ml 2102 ml 1352 ml Output Total 715 ml 1425 ml 575 ml Balance 4683 ml 2102 ml -73 ml -575 ml Intake IV Total 2212 ml 2102 ml 1352 ml Packed Cells 1200 ml Platelets 486 ml Blood Product IV Normal Saline Flush 1500 ml Output Urine Total 15 ml 825 ml 175 ml Stool Total 0 ml 0 ml Gastric Drainage Total 0 ml 0 ml 100 ml Drainage Total 700 ml 600 ml 300 ml Result Diagram: 04/23/1810 04/23/18609 Other Results Laboratory Tests Test 04/22/18 08:00 Prothromb Time International Ratio 1.3 RATIO Prothrombin Time 13.0 SEC (9.8-11.6) Imaging Last 24 hours Impressions [address] CT 04/21/18149 Signed Impressions: CONCLUSION: 1. No acute thoracic spine injury identified. Maxillofacial CT 04/21/18149 Signed Impressions: CONCLUSION: 1. Right frontal calvarial fracture and numerous facial fractures as above, re latively nondisplaced. Lumbar Spine CT 04/21/18149 Signed Impressions: CONCLUSION: 1. Left-sided L4 and L5 transverse process fractures. No vertebral body fractu re or subluxation. Pelvic fractures as above. Head CT 04/21/18123 Signed Impressions: CONCLUSION: 1. Right frontal skull fracture extending through right frontal sinus with pne umocephalus as above. No significant intracranial hemorrhage or mass effect. Ri ght-sided scalp hemorrhage. Femur X-Ray 04/21/18123 Signed Impressions: CONCLUSION: No femur fracture identified. Displaced left pubic and rami fractures with altamirano tasis at sacroiliac joints. Chest CT 04/21/18123 Signed Impressions: CONCLUSION: 1. Negative for acute intrathoracic injury. Endotracheal tube in good position . Air in the thoracic spinal canal. Cervical Spine CT 04/21/18123 Signed Impressions: CONCLUSION: 1. Negative for acute cervical spine fracture. No subluxation. Abdomen/Pelvis CT 04/21/18123 Signed Impressions: CONCLUSION: 1. Severe bilateral pelvic fractures as above with bilateral sacroiliac diasta ses. Large right pelvic sidewall hematoma with active extravasation. 2. Extensive air in the superficial and deep soft tissues likely related to op en wound anteriorly. There also appears to be some air within venous structures . Air within the spinal canal could be within venous structures or may have dis sected cephalad from inferior open wound. Pelvis X-Ray 04/21/18121 Signed Impressions: CONCLUSION: Bilateral pelvic fractures as above. Chest X-Ray 04/21/18121 Signed Impressions: CONCLUSION: Endotracheal tube in good position. No acute findings. Left costophrenic phreni c angle clipped. Knee X-Ray 04/21/18 0000 Signed Impressions: CONCLUSION: Avulsion fracture left distal femur or patella. Left fibular head fracture. Abdomen X-Ray 04/21/18 0000 Signed Impressions: CONCLUSION: 1. 2 retained surgical sponges projected over the sacrum and upper pelvis. 2. Multiple pelvic fractures with diastases of the symphysis pubis and sacroil iac joints. 3. Balloon pump in place as well as multiple embolization coils. These findings were called Katie in the operating room who stated that the surge on was aware of the retained sponges. Objective Remarks pelvis: exfix in place. pin sites clean LLE: exfix in place. pin sites clean. soft dressings in place. dressings in place over groin Left upper extremity no crepitus or significant swelling of the shoulder elbow or wrist. Mild swelling of the left elbow but no instability or crepitus. Right upper extremity: No crepitus or significant swelling of the shoulder, elbow or wrist. Right lower extremity no abnormal swelling of the hip. Mild effusion of the right knee but no instability or crepitus. No crepitus of the ankle Assessment & Plan Assessment and Plan 1) Unstable pelvic ring disruption 2) Left Knee dislocation with popliteal artery disruption and multiple ligamentous disruptions 3) Open Left groin wound Surgery: Closed reduction and external fixation pelvis, closed reduction and external fixation left knee: POD #2 -pin care BID to pelvis and left leg external fixators -dressings to left leg per Dr Moyer protocol, consider wound VAC -Patient will need fixation of pelvis at later date when stable -will also knee left knee ligamentous reconstruction. Will ask Dr Verduzco to evaluate in future. Patient not in condition to proceed at this time. -NWB BLE -will follow James Michael MD Apr 23, 2018 07:34
[2018-04-23 07:53] LABS: CALCIUM-PROTEIN CORRECTED 8.1 MG/DL (8.5-10.1)
[2018-04-23] MEDS: INSULIN NovoLIN REGULAR SUPPLEMENTAL SCALE SQ SCH ×4 (08:00→20:49)
[2018-04-23] MEDS: CHLORHEXIDINE 0.12% (ORAL KIT) 15 ML CUP MT SCH ×2 (08:00→20:15)
[2018-04-23 09:42] LABS: BANDS 47 % (0-6); LYMPHOCYTES 3 % (9-44); MONOCYTES 3 % (0-8); NEUTROPHIL # MANUAL DIFF 6.5 TH/MM3 (1.8-7.7); OVALOCYTES 1+ (NORMAL); POLYS (SEG NEUTROPHILS) 47 % (16-70)
[2018-04-23] MEDS: levETIRAcetam INJ 500 MG in SODIUM CHLORIDE 0.9% INJ 100 ML IV SCH ×2 (09:45→20:49)
[2018-04-23] MEDS: LACTULOSE SYRUP 20 GM/30 ML CUP PO SCH (09:46)
[2018-04-23] MEDS: DOCUSATE SODIUM 50 MG/SENNA 8.6 MG TAB PO SCH ×2 (09:46→20:49)
[2018-04-23] MEDS: FAMOTIDINE 20 MG/2 ML VIAL IV PUSH SCH ×2 (09:46→20:49)
[2018-04-23] MEDS: SODIUM BICARBONATE 8.4% INJ 100 MEQ in SODIUM CHLOR 0.9% 1000 ML INJ 1,000 ML IV SCH ×3 (10:07→22:03)
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
[2018-04-23 20:14] LABS: HEMOGLOBIN 7.9 GM/DL (13.0-17.0)
[2018-04-23] MEDS: ARTIFICIAL TEARS OPTH OINT 3.5 APPLIC/3.5 GM TUBO EACH EYE SCH (21:29)
[2018-04-23 22:42] LABS: BACTERIA, URINE OCC /hpf; BILIRUBIN, URINE NEG (NEG); BLOOD, URINE MOD (NEG); GLUCOSE,URINE 70 mg/dL (NEG); KETONE, URINE NEG (NEG); NITRITE,URINE NEG (NEG); PH, URINE 6.5 (5.0-8.5); URINE COLOR RED (YELLW/STRAW); URINE LEUKOCYTE ESTERASE SMALL (NEG)
[2018-04-24] VITALS (15 sets, daily range): BP systolic 120–149; BP diastolic 56–81; PULSE 76–90; RESP 18; TEMP 97.2–99; O2SAT 96–99
[2018-04-24] MEDS: GENTAMICIN INJ 80 MG in SODIUM CHLORIDE 0.9% INJ 100 ML IV SCH ×2 (01:06→09:32)
[2018-04-24] MEDS: PROPOFOL 1000 MG/100 ML INJ 100 ML IV PRN ×5 (01:06→21:06)
[2018-04-24 01:28] LABS: HEMATOCRIT 26.4 % (39.0-51.0); HEMOGLOBIN 9.3 GM/DL (13.0-17.0)
[2018-04-24] MEDS: CHLORHEXIDINE GLUCONATE 2 % 1 PACK (2 CLOTHS) TOP SCH (03:18)
[2018-04-24] MEDS: RESP: ALBUTEROL 2.5 MG/IPRATROPIUM 0.5 MG NEB (SCH) NEB ×4 (04:08→20:20)
[2018-04-24] MEDS: ceFAZolin 2 GM PREMIX 50 ML IV SCH (05:28)
[2018-04-24 05:31] LABS: BASOPHIL % 0.1 % (0.0-2.0); EOSINOPHIL % 0.1 % (0.0-4.0); HEMOGLOBIN 9.5 GM/DL (13.0-17.0); LYMPH % 3.6 % (9.0-44.0); LYMPHOCYTE # 0.3 TH/MM3 (1.0-4.8); MEAN CELL VOLUME 85.1 FL (80.0-100.0); MEAN CORPUSCULAR HGB CONC 35.2 % (32.0-36.0); MEAN PLATELET VOLUME 8.1 FL (7.0-11.0); MONO % 3.4 % (0.0-8.0); MONOCYTE # 0.3 TH/MM3 (0-0.9); NEUT % 92.8 % (16.0-70.0); PLATELET COUNT 72 TH/MM3 (150-450); RED BLOOD COUNT 3.17 MIL/MM3 (4.50-5.90); RED CELL DISTRIBUTION WIDTH 15.1 % (11.6-17.2); WHITE BLOOD COUNT 7.6 TH/MM3 (4.0-11.0)
[2018-04-24] MEDS: SODIUM BICARBONATE 8.4% INJ 100 MEQ in SODIUM CHLOR 0.9% 1000 ML INJ 1,000 ML IV SCH ×2 (06:16→15:10)
[2018-04-24 06:22] LABS: CALCIUM 6.6 MG/DL (8.5-10.1); CREATININE 6.36 MG/DL (0.60-1.30)
[2018-04-24 06:23] LABS: BICARBONATE 19.8 MEQ/L (21.0-32.0)
[2018-04-24 06:40] LABS: CALCIUM-PROTEIN CORRECTED 7.9 MG/DL (8.5-10.1); TOTAL PROTEIN 4.6 GM/DL (6.4-8.2)
[2018-04-24 07:02] LABS: BANDS 25 % (0-6); BASOPHILS 1 % (0-2); CORRECTED NUCLEATED RBC 1 /100 WBC (0-0); LYMPHOCYTES 4 % (9-44); MONOCYTES 4 % (0-8); NEUTROPHIL # MANUAL DIFF 6.9 TH/MM3 (1.8-7.7); NUCLEATED RED BLOOD CELL 1 (0-0); POLYS (SEG NEUTROPHILS) 66 % (16-70)
[2018-04-24] MEDS: INSULIN NovoLIN REGULAR SUPPLEMENTAL SCALE SQ SCH ×4 (08:00→21:00)
[2018-04-24] MEDS: CHLORHEXIDINE 0.12% (ORAL KIT) 15 ML CUP MT SCH ×2 (08:00→20:21)
[2018-04-24] MEDS: fentaNYL DRIP 250 ML IV PRN (08:04)
[2018-04-24] MEDS: FAMOTIDINE 20 MG/2 ML VIAL IV PUSH SCH (08:26)
[2018-04-24] MEDS: DOCUSATE SODIUM 50 MG/SENNA 8.6 MG TAB PO SCH ×2 (08:26→20:22)
[2018-04-24] MEDS: levETIRAcetam INJ 500 MG in SODIUM CHLORIDE 0.9% INJ 100 ML IV SCH ×2 (08:26→20:22)
[2018-04-24] MEDS: LACTULOSE SYRUP 20 GM/30 ML CUP PO SCH (08:26)
[2018-04-24] MEDS: ARTIFICIAL TEARS OPTH OINT 3.5 APPLIC/3.5 GM TUBO EACH EYE SCH ×2 (08:27→20:21)
--- NOTE | 2018-04-24 08:56 | EKG ---
Date Performed: 04/23/2018 Time Performed: 11:18:02 PTAGE: 32 years EKG: Sinus rhythm Poor R wave progression - probable normal variant Borderline ECG NO PREVIOUS TRACING DOCTOR: Pato Asif Interpretating Date/Time 04/24/2018 08:55:13
--- NOTE | 2018-04-24 10:08 | PD.ORT.PN ---
Subjective Subjective Remarks Intubated. Stable Objective Vitals Vital Signs Date Time Temp Pulse Resp B/P (MAP) Pulse Ox O2 Delivery O2 Flow Rate FiO2 04/24/18 08:41 99 35 04/24/18 08:00 98.8 90 18 134/73 (93) 99 04/24/18 08:00 35 04/24/18 08:00 90 04/24/18 06:00 88 04/24/18 04:08 99 35 04/24/18 04:00 98.4 90 18 148/74 (98) 99 04/24/18 04:00 78 04/24/18 04:00 35 04/24/18 02:00 86 04/24/18 00:00 98 35 04/24/18 00:00 99.0 90 18 146/71 (96) 98 04/24/18 00:00 35 04/24/18 00:00 90 04/24/18 00:00 99.0 90 18 143/69 98 04/23/18 22:08 99.0 92 18 143/60 99 04/23/18 22:00 94 04/23/18 21:49 98.8 94 18 143/57 98 04/23/18 21:39 98.8 94 18 143/58 99 04/23/18 20:26 98.8 97 18 137/49 98 04/23/18 20:11 99.0 88 20 135/52 99 04/23/18 20:00 90 04/23/18 20:00 98 35 04/23/18 20:00 99.0 90 22 132/52 (78) 99 04/23/18 20:00 35 04/23/18 16:00 97 04/23/18 16:00 99.7 97 18 136/42 (73) 98 04/23/18 15:51 98 35 04/23/18 12:27 96 35 04/23/18 12:00 99.3 66 18 131/47 (75) 97 04/23/18 12:00 99 I/O 04/23/18 04/23/18 04/23/18 04/24/18 04/24/18 04/24/18 07:00 15:00 23:00 07:00 15:00 23:00 Intake Total 2850 ml 2707 ml 912 ml Output Total 575 ml 450 ml 395 ml Balance -575 ml 2850 ml 2257 ml 517 ml Intake IV Total 2850 ml 1707 ml 352 ml Packed Cells 400 ml 400 ml Blood Product IV Normal Saline Flush 520 ml 100 ml Other 80 ml 60 ml Output Urine Total 175 ml 50 ml 20 ml Stool Total 0 ml Gastric Drainage Total 100 ml 0 ml Drainage Total 300 ml 400 ml 375 ml Result Diagram: 04/24/18 0505 04/24/18 0505 Imaging Last 24 hours Impressions Thoracic Spine CT 04/21/18149 Signed Impressions: CONCLUSION: 1. No acute thoracic spine injury identified. Maxillofacial CT 04/21/18149 Signed Impressions: CONCLUSION: 1. Right frontal calvarial fracture and numerous facial fractures as above, re latively nondisplaced. Lumbar Spine CT 04/21/18149 Signed Impressions: CONCLUSION: 1. Left-sided L4 and L5 transverse process fractures. No vertebral body fractu re or subluxation. Pelvic fractures as above. Head CT 04/21/18123 Signed Impressions: CONCLUSION: 1. Right frontal skull fracture extending through right frontal sinus with pne umocephalus as above. No significant intracranial hemorrhage or mass effect. Ri ght-sided scalp hemorrhage. Femur X-Ray 04/21/18123 Signed Impressions: CONCLUSION: No femur fracture identified. Displaced left pubic and rami fractures with altamirano tasis at sacroiliac joints. Chest CT 04/21/18123 Signed Impressions: CONCLUSION: 1. Negative for acute intrathoracic injury. Endotracheal tube in good position . Air in the thoracic spinal canal. Cervical Spine CT 04/21/18123 Signed Impressions: CONCLUSION: 1. Negative for acute cervical spine fracture. No subluxation. Abdomen/Pelvis CT 04/21/18123 Signed Impressions: CONCLUSION: 1. Severe bilateral pelvic fractures as above with bilateral sacroiliac diasta ses. Large right pelvic sidewall hematoma with active extravasation. 2. Extensive air in the superficial and deep soft tissues likely related to op en wound anteriorly. There also appears to be some air within venous structures . Air within the spinal canal could be within venous structures or may have dis sected cephalad from inferior open wound. Pelvis X-Ray 04/21/18121 Signed Impressions: CONCLUSION: Bilateral pelvic fractures as above. Chest X-Ray 6/1/18 0122 Signed Impressions: CONCLUSION: Endotracheal tube in good position. No acute findings. Left costophrenic phreni c angle clipped. Knee X-Ray 04/21/18 0000 Signed Impressions: CONCLUSION: Avulsion fracture left distal femur or patella. Left fibular head fracture. Abdomen X-Ray 04/21/18 0000 Signed Impressions: CONCLUSION: 1. 2 retained surgical sponges projected over the sacrum and upper pelvis. 2. Multiple pelvic fractures with diastases of the symphysis pubis and sacroil iac joints. 3. Balloon pump in place as well as multiple embolization coils. These findings were called Katie in the operating room who stated that the surge on was aware of the retained sponges. Objective Remarks pelvis: exfix in place. pin sites clean LLE: exfix in place. pin sites clean. soft dressings in place. dressings in place over groin Left upper extremity no crepitus or significant swelling of the shoulder elbow or wrist. Mild swelling of the left elbow but no instability or crepitus. Right upper extremity: No crepitus or significant swelling of the shoulder, elbow or wrist. Right lower extremity no abnormal swelling of the hip. Mild effusion of the right knee but no instability or crepitus. No crepitus of the ankle Assessment & Plan Assessment and Plan 1) Unstable pelvic ring disruption 2) Left Knee dislocation with popliteal artery disruption and multiple ligamentous disruptions 3) Open Left groin wound Surgery: Closed reduction and external fixation pelvis, closed reduction and external fixation left knee: POD #3 -pin care BID to pelvis and left leg external fixators -dressings to left leg per Dr Moyer protocol, consider wound VAC -Patient will need fixation of pelvis at later date when stable -will also knee left knee ligamentous reconstruction. Will ask Dr Verduzco to evaluate in future. Patient not in condition to proceed at this time. -NWB BLE -will follow Daniel Fernando Jr. Apr 24, 2018 10:08
[2018-04-24] MEDS ORDERED: ROCURONIUM INJ 50 MG/5 ML SYRINGE IV PUSH ONE (12:00)
[2018-04-24] MEDS ORDERED: PROPOFOL 200 MG/20 ML AMP IV ONE (12:00)
[2018-04-24] MEDS ORDERED: SODIUM CHLOR 0.9% 1000 ML INJ 1,000 ML OTHER PRN ×2 (13:00)
[2018-04-24] MEDS ORDERED: ACETAMINOPHEN 325 MG TAB PO PRN (13:00)
[2018-04-24] MEDS ORDERED: ALBUMIN 25% INJ 100 ML IV PRN (13:00)
[2018-04-24] MEDS ORDERED: SODIUM CHLORIDE 0.9% FLUSH 10 ML FLUSH IV FLUSH PRN ×2 (13:00→17:45)
[2018-04-24] MEDS ORDERED: GELATIN 12 MM/7 MM FOAM TOP PRN (13:00)
[2018-04-24] MEDS ORDERED: ONDANSETRON HCL 4 MG/2 ML VIAL IV PUSH PRN (13:00)
[2018-04-24] MEDS ORDERED: NITROGLYCERIN 0.4 MG SL 25 TABS/BTL SL PRN (13:00)
[2018-04-24] MEDS ORDERED: HEPARIN SODIUM - IV 10,000 UNITS/10 ML VIAL PRN (13:00)
[2018-04-24] MEDS ORDERED: diphenhydrAMINE HCL 25 MG CAP PO PRN (13:00)
[2018-04-24] MEDS ORDERED: SODIUM CHLOR 0.9% 1000 ML INJ 1,000 ML IV PRN (13:00)
[2018-04-24] MEDS ORDERED: GENTAMICIN SULFATE 20 MG/2 ML VIAL OTHER PRN (13:00)
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
--- NOTE | 2018-04-24 14:56 | PD.OP ---
Operative Report Open abdomen status post damage control laparotomy, open pelvic fractures with a large open perineal wound, left lower extremity fractures status post popliteal artery repair, colostomy status Postoperative Diagnosis: Open abdomen status post damage control laparotomy, open pelvic fractures with a large open perineal wound, left lower extremity fractures status post popliteal artery repair, colostomy status Procedure: Reopening of prior laparotomy, abdominal washout, abdominal wound VAC placement using the therapy wound VAC system, examination under anesthesia, washout and sharp debridement of perennial wound with partial closure and repacking Anesthesia: General endotracheal tube anesthesia Surgeon: Louis Hsu Antique Furniture Repairer(s): None Resident Surgeon: None Operation and Findings: Massive perennial soft tissue defect extending into the left groin, obliteration of the rectal sphincter with torn levator muscles, open pelvic fractures, retroperitoneal hematoma with perirectal hematoma and cecal hematoma but viable bowel throughout the abdomen, appendicolith After obtaining informed consent the patient was taken the operating room he was prepped and draped in a standard sterile manner. On exam under anesthesia was performed with evidence of massive peritoneal soft tissue injury and exposed pelvic bones. There appears to have been complete avulsion of the rectal sphincters with avulsion of the levator muscles as well. The tissue defect extended cephalad towards the pelvis with exposed bones on both sides then extended more up and into the groin on the left. Wounds were washed out with a sterile saline Betadine and peroxide solution, warren were used to reapproximate approximately 15 cm of the skin in the left groin. There was nonviable skin and subcutaneous tissue in the perineum that was sharply debrided using Metzenbaum scissors. This was hemostatic digital rectal exam was performed with no palpable evidence of mucosal injury and stool in the rectal vault. Because of the patient's pelvic external fixators and left lower extremity external fixators we were unable to get a rigid proctoscope in place for a thorough exam but I do not suspect there is a rectal injury given his digital rectal exam. Of note during the washout of the pelvis a single Ray-Marlen was removed from the right pelvis. The wound was then packed with a Betadine soaked gauze. Attention was then turned towards the intra-abdominal portion of the operation. The outer layers of the epidural wound VAC dressing were removed leaving the bowel protective nonadhesive layer in place. The patient was then prepped and draped in the standard sterile manner, the bowel protective nonadherent layer was then removed and a 4 quadrant inspection of the abdomen was begun with no evidence of additional injury found. The bowel was run in its entirety nasogastric tube is noted to be in good position no injury was identified from the ligament of Treitz to the ileocecal valve. The mesenteric repair identified near the ileocecal valve was identified and a single [id number] 3-0 Vicryl suture was placed on the other side of the mesentery to control mild venous ooze. The cecum was noted to be involved in this large retroperitoneal hematoma but viable. The rectum as well seem to be engulfing retroperitoneal hematoma but it appeared viable. Of note the appendix appears to have a fecalith and it would be a good idea to remove this prior to abdominal closure. The spleen also appeared to have an irregular edge of unknown etiology, but atraumatic. No other injuries were identified in the abdominal cavity and the there are wound VAC system was placed back into position. This consists of the nonadherent bowel protective layer followed by the absorptive sponge and covered by the occlusive layer. This was connected to 25 cm of suction with no evidence of leak and a good seal. The colostomy appliance was then placed back into position and the patient was returned to the trauma ICU in good condition. All needle sponges and counts were correct, he tolerated the procedure well without complication. Louis Hsu MD Apr 24, 2018 14:56
--- NOTE | 2018-04-24 16:18 | PD.OP ---
Operative Report Acute renal failure left likely secondary to rhabdomyolysis in need of hemodialysis Postoperative Diagnosis: Acute renal failure left likely secondary to rhabdomyolysis in need of hemodialysis Procedure: Attempted placement of hemodialysis catheter Anesthesia: 1% plain lidocaine Surgeon: Louis Hsu Table Assembler Metal(s): None Resident Surgeon: None Operation and Findings: After obtaining informed consent patient was prepped and draped in the standard sterile manner. 1% plain lidocaine was infused into the area to be accessed. Access to the left subclavian vein was obtained via a single pass of the finder needle without complication. The guidewire was then threaded into the needle and met with resistance. The wire was withdrawn with confirmation that the needle was still intraluminal by the return of dark venous blood pressure nonpulsatile blood. The wire was once again engaged it threaded partially and met with resistance once again. Decision at this time was made to abort the procedure and consult interventional radiology to safely place a hemodialysis catheter. Louis Hsu MD Apr 24, 2018 16:18
[2018-04-24] MEDS ORDERED: Vancomycin Consult Pharmacy 1 EA OTHER SCH (16:30)
[2018-04-24] MEDS ORDERED: HEPARIN SODIUM - IV 2,000 UNITS/2 ML VIAL IV FLUSH PRN (17:45)
[2018-04-24] MEDS ORDERED: VANCOMYCIN 1,000 MG/NS 250 ML IV ONE ×2 (18:00)
[2018-04-24] MEDS: PIPERACIL-TAZO 2.25 GM PREMIX 50 ML IV SCH ×2 (18:30→23:58)
[2018-04-24 19:06] LABS: HEMATOCRIT 25.1 % (39.0-51.0); HEMOGLOBIN 8.8 GM/DL (13.0-17.0)
[2018-04-24] MEDS: FAMOTIDINE 20 MG TAB PO SCH (20:22)
--- NOTE | 2018-04-24 20:50 | HHI.NSPN ---
History Interval History Traumatic brain injury. ICP monitor placed. CT scan head 04/22/2018 was stable small right frontal subdural hematoma without significant mass-effect. Exam Results Vital Signs Date Time Temp Pulse Resp B/P (MAP) Pulse Ox O2 Delivery O2 Flow Rate FiO2 04/24/18 20:20 99 35 04/24/18 16:00 97.7 83 18 149/79 (102) 04/22/18 07:00 Mechanical Ventilator 04/21/18 01:25 15.00 Intake and Output 04/24/18 04/24/18 04/25/18 08:00 16:00 00:00 Intake Total 912 ml 2250 ml 230 ml Output Total 395 ml 375 ml Balance 517 ml 2250 ml -145 ml Physical Examination Patient remains intubated and sedated. Minimal response to pain. ICP has remained low throughout the night Multiple injuries Medical Decision Making Impression and Plan Impression: 1. Stable following traumatic brain injury, small right frontal subdural hematoma without significant mass-effect Plan: Continuing ISC supportive care. Would prefer continued nonchemical DVT prophylaxis at this point. Ulcer prophylaxis Mobilize out of bed as tolerated Plan follow-up CT scan head at the end of this week if otherwise remains stable. Undergoing dialysis today and again in the morning. Plan discontinue ICP monitor tomorrow following dialysis if ICPs remain stable. Sudheer Duvall MD Apr 24, 2018 20:50
[2018-04-25] VITALS (18 sets, daily range): BP systolic 126–154; BP diastolic 67–80; PULSE 81–93; RESP 14–18; TEMP 97.9–99.3; O2SAT 96–99
[2018-04-25] MEDS: SODIUM BICARBONATE 8.4% INJ 100 MEQ in SODIUM CHLOR 0.9% 1000 ML INJ 1,000 ML IV SCH ×2 (01:31→07:54)
[2018-04-25] MEDS: PROPOFOL 1000 MG/100 ML INJ 100 ML IV PRN ×7 (01:31→23:26)
[2018-04-25] MEDS: CHLORHEXIDINE GLUCONATE 2 % 1 PACK (2 CLOTHS) TOP SCH (03:35)
[2018-04-25] MEDS: RESP: ALBUTEROL 2.5 MG/IPRATROPIUM 0.5 MG NEB (SCH) NEB ×2 (03:52→09:04)
[2018-04-25] MEDS: fentaNYL DRIP 250 ML IV PRN ×3 (04:15→23:50)
[2018-04-25] MEDS: PIPERACIL-TAZO 2.25 GM PREMIX 50 ML IV SCH ×4 (05:56→23:26)
[2018-04-25 06:13] LABS: AUTOMATED NEUTROPHIL # 6.3 TH/MM3 (1.8-7.7); BASOPHIL % 0.2 % (0.0-2.0); EOSINOPHIL % 0.5 % (0.0-4.0); HEMATOCRIT 26.9 % (39.0-51.0); HEMOGLOBIN 9.4 GM/DL (13.0-17.0); LYMPHOCYTE # 0.3 TH/MM3 (1.0-4.8); MEAN CELL VOLUME 84.2 FL (80.0-100.0); MEAN CORPUSCULAR HEMOGLOBIN 29.5 PG (27.0-34.0); MEAN PLATELET VOLUME 8.1 FL (7.0-11.0); MONO % 5.9 % (0.0-8.0); MONOCYTE # 0.4 TH/MM3 (0-0.9); NEUT % 89.4 % (16.0-70.0); PLATELET COUNT 87 TH/MM3 (150-450); RED BLOOD COUNT 3.19 MIL/MM3 (4.50-5.90); RED CELL DISTRIBUTION WIDTH 15.5 % (11.6-17.2)
[2018-04-25 06:42] LABS: BICARBONATE 23.4 MEQ/L (21.0-32.0); CALCIUM 7.1 MG/DL (8.5-10.1); CREATININE 5.99 MG/DL (0.60-1.30)
[2018-04-25 07:06] LABS: CALCIUM-PROTEIN CORRECTED 8.3 MG/DL (8.5-10.1); TOTAL PROTEIN 4.9 GM/DL (6.4-8.2)
[2018-04-25] MEDS: LACTULOSE SYRUP 20 GM/30 ML CUP PO SCH (07:53)
[2018-04-25] MEDS: levETIRAcetam INJ 500 MG in SODIUM CHLORIDE 0.9% INJ 100 ML IV SCH (07:53)
[2018-04-25] MEDS: DOCUSATE SODIUM 50 MG/SENNA 8.6 MG TAB PO SCH ×2 (07:53→20:26)
[2018-04-25] MEDS: FAMOTIDINE 20 MG TAB PO SCH ×2 (07:53→20:26)
[2018-04-25] MEDS: CHLORHEXIDINE 0.12% (ORAL KIT) 15 ML CUP MT SCH ×2 (08:00→19:48)
[2018-04-25] MEDS: INSULIN NovoLIN REGULAR SUPPLEMENTAL SCALE SQ SCH ×4 (08:00→20:33)
--- NOTE | 2018-04-25 08:10 | RADRPT ---
EXAM DATE: 04/25/2018 8:02 AM EDT AGE/SEX: 32 years / Male INDICATIONS: Shortness of breath and respiratory failure. CLINICAL DATA: This is the patient's subsequent encounter. Patient reports that signs and symptoms h ave been present for 4 - 6 days and indicates a pain score of Nonresponsive. MEDICAL/SURGICAL HISTORY: Non-responsive. Non-responsive. COMPARISON: [facility] – [place], CHEST SINGLE AP, 04/22/2018. . FINDINGS: No infiltrate, effusion or pneumothorax demonstrated. Heart size stable, within normal limits. Patient remains intubated. Endotracheal tube tip is approximately 2 cm above the stephanie. Nasogastric tube courses into the stomach. There is a right internal jugular central venous catheter with tip in the superior vena cava, new. The right subclavian central venous catheter remains in place, tip also in the superior vena cava. CONCLUSION: 1. New right IJ line with tip in the superior vena cava. No pneumothorax or other acute complication . 2. Other lines and tubes unchanged. The endotracheal tube tip is 2 cm above the stephanie. 3. Clear lungs. Electronically signed by: Bib De Jesus MD 04/25/2018 8:08 AM EDT
[2018-04-25 08:47] LABS: BANDS 21 % (0-6); DOHLE BODIES PRESENT (NONE SEEN); LYMPHOCYTES 4 % (9-44); MONOCYTES 4 % (0-8); MYELOCYTES 1 % (0-0); NEUTROPHIL # MANUAL DIFF 6.4 TH/MM3 (1.8-7.7); POLYS (SEG NEUTROPHILS) 70 % (16-70)
[2018-04-25] MEDS: ARTIFICIAL TEARS OPTH OINT 3.5 APPLIC/3.5 GM TUBO EACH EYE SCH ×2 (09:00→20:26)
[2018-04-25] MEDS ORDERED: MEPERIDINE HCL 50 MG/ML VIAL IV PUSH PRN (09:30)
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
[2018-04-25] MEDS: HEPARIN SODIUM - SQ 10,000 UNITS/ML VIAL SQ SCH ×2 (11:42→18:00)
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
--- NOTE | 2018-04-25 13:50 | PD.ORT.PN ---
Subjective Subjective Remarks Patient intubated and sedated in the intensive care. Patient has open unstable pelvic ring fractures. Patient has unstable left knee ligamentous disruption with knee dislocation and popliteal artery disruption. Objective Vitals Vital Signs Date Time Temp Pulse Resp B/P (MAP) Pulse Ox O2 Delivery O2 Flow Rate FiO2 04/25/18 12:25 96 35 04/25/18 12:00 35 04/25/18 12:00 93 04/25/18 12:00 98.8 93 14 140/70 (93) 97 04/25/18 10:00 91 04/25/18 09:07 97 35 04/25/18 08:00 35 04/25/18 08:00 98.6 88 18 140/72 (94) 98 04/25/18 08:00 88 04/25/18 06:00 90 04/25/18 04:00 35 04/25/18 04:00 98.6 82 18 126/80 (95) 99 04/25/18 04:00 82 04/25/18 03:53 98 35 04/25/18 02:00 86 04/25/18 00:00 81 04/25/18 00:00 97.9 81 18 153/71 (98) 98 04/25/18 00:00 35 04/24/18 23:24 98 35 04/24/18 22:00 80 04/24/18 20:20 99 35 04/24/18 20:00 83 04/24/18 20:00 35 04/24/18 20:00 97.5 76 18 120/56 (77) 99 04/24/18 16:50 99 35 04/24/18 16:50 98 100 04/24/18 16:00 97.7 83 18 149/79 (102) 98 04/24/18 16:00 83 I/O 04/24/18 04/24/18 04/24/18 04/25/18 04/25/18 04/25/18 07:00 15:00 23:00 07:00 15:00 23:00 Intake Total 912 ml 1250 ml 1685 ml 1749 ml Output Total 395 ml 3375 ml 220 ml 3000 ml Balance 517 ml 1250 ml -1690 ml 1529 ml -3000 ml Intake IV Total 352 ml 550 ml 1605 ml 1550 ml Tube Feeding 139 ml Packed Cells 400 ml Blood Product IV Normal Saline Flush 100 ml Other 60 ml 700 ml 80 ml 60 ml Output Urine Total 20 ml 0 ml 20 ml Stool Total 25 ml Gastric Drainage Total 0 ml Drainage Total 375 ml 350 ml 200 ml Hemodialysis 3000 ml 3000 ml Result Diagram: 04/25/18 0550 04/25/18 0550 Imaging Last 24 hours Impressions Thoracic Spine CT 04/21/18149 Signed Impressions: CONCLUSION: 1. No acute thoracic spine injury identified. Maxillofacial CT 04/21/18149 Signed Impressions: CONCLUSION: 1. Right frontal calvarial fracture and numerous facial fractures as above, re latively nondisplaced. Lumbar Spine CT 04/21/18149 Signed Impressions: CONCLUSION: 1. Left-sided L4 and L5 transverse process fractures. No vertebral body fractu re or subluxation. Pelvic fractures as above. Head CT 04/21/18123 Signed Impressions: CONCLUSION: 1. Right frontal skull fracture extending through right frontal sinus with pne umocephalus as above. No significant intracranial hemorrhage or mass effect. Ri ght-sided scalp hemorrhage. Femur X-Ray 04/21/18123 Signed Impressions: CONCLUSION: No femur fracture identified. Displaced left pubic and rami fractures with altamirano tasis at sacroiliac joints. Chest CT 04/21/18123 Signed Impressions: CONCLUSION: 1. Negative for acute intrathoracic injury. Endotracheal tube in good position . Air in the thoracic spinal canal. Cervical Spine CT 04/21/18123 Signed Impressions: CONCLUSION: 1. Negative for acute cervical spine fracture. No subluxation. Abdomen/Pelvis CT 04/21/18123 Signed Impressions: CONCLUSION: 1. Severe bilateral pelvic fractures as above with bilateral sacroiliac diasta ses. Large right pelvic sidewall hematoma with active extravasation. 2. Extensive air in the superficial and deep soft tissues likely related to op en wound anteriorly. There also appears to be some air within venous structures . Air within the spinal canal could be within venous structures or may have dis sected cephalad from inferior open wound. Pelvis X-Ray 04/21/18121 Signed Impressions: CONCLUSION: Bilateral pelvic fractures as above. Chest X-Ray 04/21/18121 Signed Impressions: CONCLUSION: Endotracheal tube in good position. No acute findings. Left costophrenic phreni c angle clipped. Knee X-Ray 04/21/18 0000 Signed Impressions: CONCLUSION: Avulsion fracture left distal femur or patella. Left fibular head fracture. Abdomen X-Ray 04/21/18 0000 Signed Impressions: CONCLUSION: 1. 2 retained surgical sponges projected over the sacrum and upper pelvis. 2. Multiple pelvic fractures with diastases of the symphysis pubis and sacroil iac joints. 3. Balloon pump in place as well as multiple embolization coils. These findings were called Katie in the operating room who stated that the surge on was aware of the retained sponges. Objective Remarks pelvis: exfix in place. pin sites clean LLE: exfix in place. pin sites clean. soft dressings in place. dressings in place over groin. Calf compartments soft Left upper extremity no crepitus or significant swelling of the shoulder elbow or wrist. Right upper extremity: No crepitus or significant swelling of the shoulder, elbow or wrist. Right lower extremity no abnormal swelling of the hip. Right knee mild swelling but no instability or crepitus. No crepitus with ankle motion Assessment & Plan Assessment and Plan 1) Unstable open pelvic ring disruption--status post closed reduction and external fixation 2) Left Knee dislocation with popliteal artery disruption and multiple ligamentous disruptions 3) Open Left groin wound Surgery: Closed reduction and external fixation pelvis, closed reduction and external fixation left knee: POD #4 -pin care BID to pelvis and left leg external fixators -dressings changes to left leg--possible wound closure or possible VAC dressings -Patient will need fixation of pelvis at later date when stable -will also knee left knee ligamentous reconstruction. Will ask Dr Verduzco or Dr. Nelson to evaluate in future. Patient not in condition to proceed at this time. -NWB Martin Lyons MD Apr 25, 2018 13:50
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
[2018-04-25] MEDS ORDERED: VANCOMYCIN 1,000 MG/NS 250 ML IV SCH ×2 (18:00)
[2018-04-26] VITALS (18 sets, daily range): BP systolic 142–168; BP diastolic 74–94; PULSE 80–102; RESP 14; TEMP 96.8–99.3; O2SAT 96–100
[2018-04-26 00:22] LABS: HEMATOCRIT 25.7 % (39.0-51.0)
[2018-04-26] MEDS: HEPARIN SODIUM - SQ 10,000 UNITS/ML VIAL SQ SCH ×3 (01:27→17:50)
[2018-04-26] MEDS: PROPOFOL 1000 MG/100 ML INJ 100 ML IV PRN ×5 (03:14→22:24)
[2018-04-26] MEDS: CHLORHEXIDINE GLUCONATE 2 % 1 PACK (2 CLOTHS) TOP SCH (03:17)
[2018-04-26 05:19] LABS: AUTOMATED NEUTROPHIL # 5.7 TH/MM3 (1.8-7.7); BASOPHIL % 0.3 % (0.0-2.0); EOSINOPHIL # 0.1 TH/MM3 (0-0.4); EOSINOPHIL % 2.2 % (0.0-4.0); HEMATOCRIT 27.5 % (39.0-51.0); HEMOGLOBIN 9.4 GM/DL (13.0-17.0); LYMPH % 5.4 % (9.0-44.0); LYMPHOCYTE # 0.4 TH/MM3 (1.0-4.8); MEAN CELL VOLUME 86.1 FL (80.0-100.0); MEAN CORPUSCULAR HEMOGLOBIN 29.5 PG (27.0-34.0); MEAN CORPUSCULAR HGB CONC 34.3 % (32.0-36.0); MONO % 6.6 % (0.0-8.0); MONOCYTE # 0.4 TH/MM3 (0-0.9); NEUT % 85.5 % (16.0-70.0); PLATELET COUNT 93 TH/MM3 (150-450); RANDOM VANCOMYCIN LESS THAN 0.8 COMMENT; RED CELL DISTRIBUTION WIDTH 15.5 % (11.6-17.2); WHITE BLOOD COUNT 6.6 TH/MM3 (4.0-11.0)
[2018-04-26 05:22] LABS: BLOOD UREA NITROGEN 50 MG/DL (7-18); CALCIUM 7.8 MG/DL (8.5-10.1); CREATININE 6.51 MG/DL (0.60-1.30); GLOMERULAR FILTRATION RATE 10 ML/MIN (>89); GLUCOSE,RANDOM 112 MG/DL (74-106)
[2018-04-26 05:23] LABS: BICARBONATE 24.5 MEQ/L (21.0-32.0); CHLORIDE 99 MEQ/L (98-107); SODIUM (NA) 140 MEQ/L (136-145)
[2018-04-26] MEDS: PIPERACIL-TAZO 2.25 GM PREMIX 50 ML IV SCH ×3 (05:49→17:50)
[2018-04-26] MEDS: CHLORHEXIDINE 0.12% (ORAL KIT) 15 ML CUP MT SCH ×2 (08:00→20:00)
[2018-04-26] MEDS: INSULIN NovoLIN REGULAR SUPPLEMENTAL SCALE SQ SCH ×4 (08:00→20:54)
[2018-04-26] MEDS: ARTIFICIAL TEARS OPTH OINT 3.5 APPLIC/3.5 GM TUBO EACH EYE SCH ×2 (08:05→21:02)
[2018-04-26] MEDS: FAMOTIDINE 20 MG TAB PO SCH ×2 (08:07→20:54)
[2018-04-26] MEDS: DOCUSATE SODIUM 50 MG/SENNA 8.6 MG TAB PO SCH ×2 (08:07→20:53)
[2018-04-26] MEDS: LACTULOSE SYRUP 20 GM/30 ML CUP PO SCH (08:07)
[2018-04-26 08:08] LABS: BANDS 18 % (0-6); LYMPHOCYTES 7 % (9-44); METAMYELOCYTES 3 % (0-1); MONOCYTES 1 % (0-8); MYELOCYTES 2 % (0-0); NEUTROPHIL # MANUAL DIFF 5.7 TH/MM3 (1.8-7.7); POLYS (SEG NEUTROPHILS) 63 % (16-70); PROMYELOCYTES 1 % (0-0)
[2018-04-26] MEDS: fentaNYL DRIP 250 ML IV PRN ×2 (09:50→20:54)
[2018-04-26] MEDS ORDERED: VANCOMYCIN INJ 2,000 MG in SODIUM CHLORID 0.9% 500 ML INJ 500 ML IV ONE (10:00)
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
[2018-04-26] MEDS ORDERED: SODIUM CHLORID 0.9% 500 ML INJ 500 ML IV ONE (12:00)
[2018-04-26] MEDS ORDERED: SODIUM CHLORIDE 0.9% 10 ML VIAL IV ONE (12:00)
[2018-04-26] MEDS ORDERED: PROPOFOL 200 MG/20 ML AMP IV ONE (12:00)
[2018-04-26] MEDS ORDERED: MONT10TA4 PO (14:46)
[2018-04-26] MEDS ORDERED: CARV6.252 PO (14:46)
[2018-04-26] MEDS ORDERED: ASPI81CH6 CHEW (14:46)
[2018-04-26] MEDS ORDERED: ATOR80TA45 PO (14:46)
[2018-04-26] MEDS ORDERED: PLAV75TA29 PO (14:46)
[2018-04-26] MEDS ORDERED: VITA500C18 PO (14:46)
[2018-04-26] MEDS ORDERED: MULTTAB4 (14:46)
[2018-04-26] MEDS ORDERED: CALCTAB33 PO (14:46)
[2018-04-26] MEDS ORDERED: TEMA30CA PO (14:46)
[2018-04-26] MEDS ORDERED: CHOL10008 (14:46)
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
[2018-04-26] MEDS: cloNIDine HCL 0.1 MG TAB PO PRN (17:00)
[2018-04-26] MEDS ORDERED: PHARMACY ORDERED LAB ONE (17:45)
--- NOTE | 2018-04-26 19:15 | MP ---
cc: Sarina Humphries MD DATE OF OPERATION: 04/26/2018 PREOPERATIVE DIAGNOSIS: Multiorgan trauma, perineal injury with laceration of the pelvic floor, left leg popliteal artery transection, status post repair and fasciotomy, and large perineal wound. POSTOPERATIVE DIAGNOSIS: Multiorgan trauma, perineal injury with laceration of the pelvic floor, left leg popliteal artery transection, status post repair and fasciotomy, and large perineal wound. OPERATIVE PROCEDURE: Secondary closure, abdominal laparotomy with incidental appendectomy, irrigation and wound VAC placement to left lateral and medial leg fasciotomy, irrigation of perineal pelvic wound and packing. SURGEON: Sarina Humphries MD ANESTHESIA: General. ESTIMATED BLOOD LOSS: 100 mL. DESCRIPTION OF PROCEDURE: The patient prepped and draped in usual fashion. First, abdominal wound is attended . The patient is status post exploratory laparotomy and diverting colostomy with wound VAC placement at the time of initial injury. Old wound VAC is removed. Abdomen is irrigated with about 4 L of saline and explored. Liver appears to be intact. Small and large bowel are run. The patient has a left lower quadrant loop colostomy, which is nice and clean. The right colon is now attended. The patient has some bruising noted over the right colon, cecum and retroperitoneum. Appendix is now examined. The appendix has a large fecalith in the distal third and distal to that, patient's appendix is dilated. In face of patient's other injuries, decision was made to do incidental appendectomy because it would be almost impossible to diagnose this should the patient develop appendicitis, considering he has a fecalith already. Appendix is grasped with a Tara clamp, elevated. Mesoappendix is dissected, clamped, divided, ligated with 2-0 silk ties and 2-0 Vicryl stick tie. Appendix is amputated with a TA30 stapler. Area irrigated with copious amounts of saline once more, then abdomen closed in layers using #1 PDS loop running stitch and #1 PDS interrupted [id number]. Skin is closed interrupted with warren wide apart to allow for drainage. This completes that part of the procedure. Left leg is now attended. Fasciotomy sites explored. Medial aspect, this is irrigated with pulse accounting systems analyst and then lateral fasciotomy side in the same way. Muscle is nice and viable. Leg is swollen. Muscle appears to be viable throughout. The patient has excellent pulses in the foot. At this point, the area is irrigated with copious amounts of irrigation using pulse accounting systems analyst and then wound VAC is cut to size, placed in the wound and applied medially and laterally. At the very end, the perineal incision is explored. The patient has a large perineal wound that extends from the left groin all the way down to the gluteal crease and surrounding the rectum on the left side. Essentially, the levator muscles are partially destroyed here, and I believe the sphincter is also damaged. There is no stool in the rectum anymore. Area is now irrigated with copious amounts of saline and then packed with vaginal packing soaked in Betadine. This dressing will be changed gradually until this starts granulating and then hopefully we can place a wound VAC. I do not believe that placing wound VAC at this time would be beneficial. It would be too early and would be hard to do safely. The patient was taken out of operating room in stable condition. MD DENIZ Guzman/NIMCO , 06:44 PM , 07:14 PM
[2018-04-27] VITALS (17 sets, daily range): BP systolic 117–166; BP diastolic 74–90; PULSE 92–117; RESP 14–20; TEMP 99.9–100.9; O2SAT 96–100
[2018-04-27] MEDS: PIPERACIL-TAZO 2.25 GM PREMIX 50 ML IV SCH ×4 (00:40→20:00)
[2018-04-27] MEDS: PROPOFOL 1000 MG/100 ML INJ 100 ML IV PRN ×5 (01:33→20:32)
[2018-04-27] MEDS: HEPARIN SODIUM - SQ 10,000 UNITS/ML VIAL SQ SCH ×3 (02:48→17:22)
[2018-04-27] MEDS: CHLORHEXIDINE GLUCONATE 2 % 1 PACK (2 CLOTHS) TOP SCH (04:00)
[2018-04-27 05:36] LABS: HEMATOCRIT 27.2 % (39.0-51.0); HEMOGLOBIN 9.1 GM/DL (13.0-17.0); MEAN CELL VOLUME 88.1 FL (80.0-100.0); MEAN CORPUSCULAR HEMOGLOBIN 29.5 PG (27.0-34.0); MEAN CORPUSCULAR HGB CONC 33.5 % (32.0-36.0); MEAN PLATELET VOLUME 7.8 FL (7.0-11.0); PLATELET COUNT 111 TH/MM3 (150-450); RED BLOOD COUNT 3.09 MIL/MM3 (4.50-5.90); RED CELL DISTRIBUTION WIDTH 15.4 % (11.6-17.2); WHITE BLOOD COUNT 8.7 TH/MM3 (4.0-11.0)
[2018-04-27 05:53] LABS: BICARBONATE 22.3 MEQ/L (21.0-32.0); CREATININE 8.32 MG/DL (0.60-1.30); RANDOM VANCOMYCIN 28.9 COMMENT
--- NOTE | 2018-04-27 05:56 | RADRPT ---
EXAM DATE: 04/27/2018 5:48 AM EDT AGE/SEX: 32 years / Male INDICATIONS: Shortness of breath. CLINICAL DATA: This is the patient's subsequent encounter. Patient reports that signs and symptoms h ave been present for 1 week and indicates a pain score of Nonresponsive. MEDICAL/SURGICAL HISTORY: Non-responsive. Non-responsive. COMPARISON: C, CHEST SINGLE AP, 04/25/2018. . FINDINGS: Endotracheal tube in good position. NG enters stomach. Right central line in superior vena cava. Mild basilar airspace disease which may represent dependent atelectasis. No significant effusion. No pneu mothorax. CONCLUSION: Support apparatus unchanged. Basilar atelectasis. Electronically signed by: Ubaldo Albert MD 04/27/2018 5:55 AM EDT
[2018-04-27] MEDS: fentaNYL DRIP 250 ML IV PRN ×2 (06:05→09:47)
[2018-04-27 07:36] LABS: BANDS 21 % (0-6); CORRECTED NUCLEATED RBC 1 /100 WBC (0-0); LYMPHOCYTES 3 % (9-44); METAMYELOCYTES 1 % (0-1); MONOCYTES 4 % (0-8); MYELOCYTES 1 % (0-0); NEUTROPHIL # MANUAL DIFF 8.1 TH/MM3 (1.8-7.7); NUCLEATED RED BLOOD CELL 1 (0-0); POLYS (SEG NEUTROPHILS) 70 % (16-70)
[2018-04-27] MEDS: CHLORHEXIDINE 0.12% (ORAL KIT) 15 ML CUP MT SCH ×2 (07:57→20:00)
[2018-04-27] MEDS: INSULIN NovoLIN REGULAR SUPPLEMENTAL SCALE SQ SCH ×4 (07:58→20:36)
[2018-04-27] MEDS: LACTULOSE SYRUP 20 GM/30 ML CUP PO SCH (07:58)
[2018-04-27] MEDS: ARTIFICIAL TEARS OPTH OINT 3.5 APPLIC/3.5 GM TUBO EACH EYE SCH ×2 (07:58→20:34)
[2018-04-27] MEDS: FAMOTIDINE 20 MG TAB PO SCH ×2 (07:58→20:35)
[2018-04-27] MEDS: DOCUSATE SODIUM 50 MG/SENNA 8.6 MG TAB PO SCH ×3 (07:58→20:35)
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
[2018-04-27] MEDS: QUEtiapine FUMARATE 25 MG TAB PO SCH ×2 (12:48→21:37)
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
[2018-04-27] MEDS: MAGNESIUM HYDROXIDE SUSP 30 ML CUP PO SCH (15:30)
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
[2018-04-28] VITALS (20 sets, daily range): BP systolic 95–158; BP diastolic 51–91; PULSE 99–114; RESP 14–17; TEMP 98.8–100.8; O2SAT 95–100
[2018-04-28] MEDS: PROPOFOL 1000 MG/100 ML INJ 100 ML IV PRN ×5 (00:14→11:32)
[2018-04-28] MEDS: fentaNYL DRIP 250 ML IV PRN (01:28)
[2018-04-28] MEDS: MAGNESIUM HYDROXIDE SUSP 30 ML CUP PO SCH ×2 (02:52→15:30)
[2018-04-28] MEDS: CHLORHEXIDINE GLUCONATE 2 % 1 PACK (2 CLOTHS) TOP SCH (04:00)
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
--- NOTE | 2018-04-28 05:07 | RADRPT ---
EXAM DATE: 04/28/2018 4:56 AM EDT AGE/SEX: 32 years / Male INDICATIONS: Follow-up subdural hematoma. CLINICAL DATA: This is the patient's subsequent encounter. Patient reports that signs and symptoms h ave been present for 1 week and indicates a pain score of Nonresponsive. MEDICAL/SURGICAL HISTORY: Non-responsive. Non-responsive. RADIATION DOSE: 56.35 CTDI (mGy) COMPARISON: [facility] [place]/O [place], 04/22/2018. . TECHNIQUE: CT of the head without contrast. Using automated exposure control and adjustment of the mA and/or kV according to patient size, radiation dose was kept as low as reasonably achievable to ob tain optimal diagnostic quality images. FINDINGS: There is an evolving small right frontal subdural hematoma measuring up to about 8 mm in maximal thic kness. No new intracranial hemorrhage. There is some developing low attenuation in the left temporal lobe measuring about 3.9 x 2.1 cm. This probably represents an evolving brain contusion with encephal omalacia. There is no mass effect. Previous pressure monitor on the right has been removed with tiny residual pneumocephalus. Again seen is a relatively nondisplaced right frontal calvarial fracture ext ending into the right frontal sinus. CONCLUSION: 1. Evolving small right frontal subdural hematoma. No new intracranial hemorrhage. 2. Removal of right frontal pressure monitor with trace residual pneumocephalus. 3. Evolving contusion in the left temporal lobe with developing encephalomalacia. 4. Stable right-sided relatively nondisplaced calvarial fracture extending to the right frontal sinu s. Electronically signed by: Ubaldo Albert MD 04/28/2018 5:05 AM EDT
[2018-04-28 05:28] LABS: AUTOMATED NEUTROPHIL # 10.7 TH/MM3 (1.8-7.7); BASOPHIL % 0.2 % (0.0-2.0); EOSINOPHIL # 0.2 TH/MM3 (0-0.4); EOSINOPHIL % 1.5 % (0.0-4.0); HEMATOCRIT 24.1 % (39.0-51.0); HEMOGLOBIN 8.2 GM/DL (13.0-17.0); LYMPH % 4.7 % (9.0-44.0); LYMPHOCYTE # 0.6 TH/MM3 (1.0-4.8); MEAN CELL VOLUME 86.8 FL (80.0-100.0); MEAN CORPUSCULAR HEMOGLOBIN 29.6 PG (27.0-34.0); MEAN CORPUSCULAR HGB CONC 34.1 % (32.0-36.0); MEAN PLATELET VOLUME 7.5 FL (7.0-11.0); MONO % 7.5 % (0.0-8.0); MONOCYTE # 0.9 TH/MM3 (0-0.9); NEUT % 86.1 % (16.0-70.0); PLATELET COUNT 140 TH/MM3 (150-450); RED BLOOD COUNT 2.77 MIL/MM3 (4.50-5.90); RED CELL DISTRIBUTION WIDTH 14.9 % (11.6-17.2); WHITE BLOOD COUNT 12.4 TH/MM3 (4.0-11.0)
[2018-04-28] MEDS: QUEtiapine FUMARATE 25 MG TAB PO SCH ×2 (05:55→22:00)
[2018-04-28] MEDS: PIPERACIL-TAZO 2.25 GM PREMIX 50 ML IV SCH ×3 (05:55→20:00)
[2018-04-28 06:01] LABS: ALBUMIN 1.5 GM/DL (3.4-5.0); BICARBONATE 25.6 MEQ/L (21.0-32.0); CALCIUM 7.9 MG/DL (8.5-10.1); CREATININE 7.74 MG/DL (0.60-1.30); PHOSPHORUS 7.3 MG/DL (2.5-4.9)
--- NOTE | 2018-04-28 07:09 | PD.ORT.PN ---
Subjective Subjective Remarks s/p exfix pelvis and exfix left knee intubated/sedated Objective Vitals Vital Signs Date Time Temp Pulse Resp B/P (MAP) Pulse Ox O2 Delivery O2 Flow Rate FiO2 04/28/18 06:00 103 04/28/18 05:19 99 35 04/28/18 04:10 100 100 04/28/18 04:00 110 04/28/18 04:00 35 04/28/18 04:00 100.4 110 17 158/91 (113) 100 04/28/18 02:12 100 35 04/28/18 02:00 111 04/28/18 00:00 110 04/28/18 00:00 35 04/28/18 00:00 100.8 110 14 145/86 (105) 98 04/27/18 22:00 112 04/27/18 20:00 100.8 116 14 160/90 (113) 100 04/27/18 20:00 117 04/27/18 20:00 35 04/27/18 19:34 100 35 04/27/18 18:00 116 04/27/18 16:06 99 35 04/27/18 16:00 35 04/27/18 16:00 114 04/27/18 16:00 100.9 114 18 146/74 (98) 100 04/27/18 14:00 110 04/27/18 12:00 35 04/27/18 12:00 115 04/27/18 12:00 100.4 115 20 117/75 (89) 100 04/27/18 10:19 96 35 04/27/18 10:00 106 04/27/18 08:06 100 35 04/27/18 08:00 101 04/27/18 08:00 35 04/27/18 08:00 99.9 101 16 166/83 (110) 100 I/O 04/27/18 04/27/18 04/27/18 04/28/18 04/28/18 04/28/18 07:00 15:00 23:00 07:00 15:00 23:00 Intake Total 443 ml 350 ml 889 ml 833 ml Output Total 850 ml 3500 ml 610 ml 710 ml Balance -407 ml -3150 ml 279 ml 123 ml Intake IV Total 350 ml 300 ml 700 ml Tube Feeding 443 ml 589 ml 133 ml Output Urine Total 0 ml 10 ml 10 ml Stool Total 0 ml 0 ml 0 ml Drainage Total 850 ml 600 ml 700 ml Hemodialysis 3500 ml Result Diagram: 04/28/18 0500 04/28/18 0500 Imaging Last 24 hours Impressions Thoracic Spine CT 04/21/18149 Signed Impressions: CONCLUSION: 1. No acute thoracic spine injury identified. Maxillofacial CT 04/21/18149 Signed Impressions: CONCLUSION: 1. Right frontal calvarial fracture and numerous facial fractures as above, re latively nondisplaced. Lumbar Spine CT 04/21/18149 Signed Impressions: CONCLUSION: 1. Left-sided L4 and L5 transverse process fractures. No vertebral body fractu re or subluxation. Pelvic fractures as above. Head CT 04/21/18123 Signed Impressions: CONCLUSION: 1. Right frontal skull fracture extending through right frontal sinus with pne umocephalus as above. No significant intracranial hemorrhage or mass effect. Ri ght-sided scalp hemorrhage. Femur X-Ray 04/21/18123 Signed Impressions: CONCLUSION: No femur fracture identified. Displaced left pubic and rami fractures with altamirano tasis at sacroiliac joints. Chest CT 04/21/18123 Signed Impressions: CONCLUSION: 1. Negative for acute intrathoracic injury. Endotracheal tube in good position . Air in the thoracic spinal canal. Cervical Spine CT 04/21/18123 Signed Impressions: CONCLUSION: 1. Negative for acute cervical spine fracture. No subluxation. Abdomen/Pelvis CT 04/21/18123 Signed Impressions: CONCLUSION: 1. Severe bilateral pelvic fractures as above with bilateral sacroiliac diasta ses. Large right pelvic sidewall hematoma with active extravasation. 2. Extensive air in the superficial and deep soft tissues likely related to op en wound anteriorly. There also appears to be some air within venous structures . Air within the spinal canal could be within venous structures or may have dis sected cephalad from inferior open wound. Pelvis X-Ray 04/21/18121 Signed Impressions: CONCLUSION: Bilateral pelvic fractures as above. Chest X-Ray 04/21/18121 Signed Impressions: CONCLUSION: Endotracheal tube in good position. No acute findings. Left costophrenic phreni c angle clipped. Knee X-Ray 04/21/18 0000 Signed Impressions: CONCLUSION: Avulsion fracture left distal femur or patella. Left fibular head fracture. Abdomen X-Ray 04/21/18 0000 Signed Impressions: CONCLUSION: 1. 2 retained surgical sponges projected over the sacrum and upper pelvis. 2. Multiple pelvic fractures with diastases of the symphysis pubis and sacroil iac joints. 3. Balloon pump in place as well as multiple embolization coils. These findings were called Katie in the operating room who stated that the surge on was aware of the retained sponges. Objective Remarks pelvis: exfix in place. pin sites clean LLE: exfix in place. pin sites clean. soft dressings in place. dressings in place over groin. Calf compartments soft Left upper extremity no crepitus or significant swelling of the shoulder elbow or wrist. Right upper extremity: No crepitus or significant swelling of the shoulder, elbow or wrist. Right lower extremity no abnormal swelling of the hip. Right knee mild swelling but no instability or crepitus. No crepitus with ankle motion Assessment & Plan Assessment and Plan 1) Unstable open pelvic ring disruption--status post closed reduction and external fixation 2) Left Knee dislocation with popliteal artery disruption and multiple ligamentous disruptions 3) Open Left groin wound Surgery: Closed reduction and external fixation pelvis, closed reduction and external fixation left knee: POD #5 -pin care BID to pelvis and left leg external fixators -dressings changes to left leg--possible wound closure or possible VAC dressings -will also knee left knee ligamentous reconstruction. Will ask Dr Verduzco or Dr. Nelson to evaluate in future. Patient not in condition to proceed at this time. -NWB BLE -plan for surgery today with Fernando for fixation of posterior pelvis and possible wound vac/wound closure of left leg Mane Chavez/Audio Visual [employer] Coordinator PA Apr 28, 2018 07:09
[2018-04-28] MEDS: INSULIN NovoLIN REGULAR SUPPLEMENTAL SCALE SQ SCH ×4 (08:00→21:00)
[2018-04-28] MEDS: CHLORHEXIDINE 0.12% (ORAL KIT) 15 ML CUP MT SCH ×2 (08:00→20:00)
[2018-04-28] MEDS: ARTIFICIAL TEARS OPTH OINT 3.5 APPLIC/3.5 GM TUBO EACH EYE SCH ×2 (08:03→21:00)
[2018-04-28] MEDS: FAMOTIDINE 20 MG TAB PO SCH ×2 (08:26→21:00)
[2018-04-28] MEDS: LACTULOSE SYRUP 20 GM/30 ML CUP PO SCH (08:26)
[2018-04-28] MEDS: DOCUSATE SODIUM 50 MG/SENNA 8.6 MG TAB PO SCH ×2 (08:26→21:00)
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
[2018-04-28] MEDS: cloNIDine HCL 0.1 MG TAB PO PRN (10:01)
[2018-04-28] MEDS ORDERED: SODIUM CHLORIDE 0.9% IV SCH ×2 (11:45→20:00)
[2018-04-28] MEDS ORDERED: TRANEXAMIC ACID IV SCH ×2 (11:45→20:00)
[2018-04-28] MEDS ORDERED: PHENYLEPHRINE HCL 10 MG/ML VIAL IV ONE (12:00)
[2018-04-28] MEDS ORDERED: STERILE WATER FOR INJECTION 20 ML VIAL IV ONE (12:00)
[2018-04-28] MEDS ORDERED: ROCURONIUM INJ 50 MG/5 ML SYRINGE IV PUSH ONE (12:00)
[2018-04-28] MEDS ORDERED: ePHEDrine/NS 25 MG/5 ML SYRINGE IV ONE (12:00)
[2018-04-28] MEDS ORDERED: NS 500 ML (EXCEL BAG) INJ 1,000 ML IV ONE (12:00)
[2018-04-28] MEDS ORDERED: LACTATED RINGER'S 1000 ML INJ 1,000 ML IV ONE (12:00)
[2018-04-28] MEDS ORDERED: VECURONIUM BROMIDE 20 MG VIAL IV ONE (12:00)
[2018-04-28] MEDS ORDERED: NORMOSOL R INJ 4,000 ML IV ONE (12:00)
[2018-04-28] MEDS ORDERED: MIDAZOLAM HCL 2 MG/2 ML VIAL ONE (13:23)
[2018-04-28] MEDS ORDERED: ACETAMINOPHEN 1000 MG/100 ML 100 ML IV ONE (13:23)
[2018-04-28] MEDS ORDERED: FAMOTIDINE 20 MG/2 ML VIAL ONE (13:23)
[2018-04-28] MEDS ORDERED: SODIUM CHLOR 0.9% 250 ML INJ 250 ML ONE (13:46)
[2018-04-28] MEDS ORDERED: VANCOMYCIN HCL 1000 MG VIAL ONE (13:46)
[2018-04-28] MEDS ORDERED: HEPARIN SODIUM - SQ 10,000 UNITS/ML VIAL ONE (13:47)
[2018-04-28] MEDS ORDERED: GENTAMICIN SULFATE 80 MG/2 ML VIAL ONE (13:47)
[2018-04-28] MEDS ORDERED: KETAMINE HCL 500 MG/10 ML VIAL ONE (13:59)
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
[2018-04-28 15:31] LABS: HEMATOCRIT 21.1 % (39.0-51.0); HEMOGLOBIN 7.1 GM/DL (13.0-17.0)
[2018-04-28] MEDS ORDERED: PHENYLEPHRINE HCL 10 MG/ML VIAL ONE ×3 (15:59→20:26)
--- NOTE | 2018-04-28 17:24 | RADRPT ---
EXAM DATE: 04/28/2018 5:20 PM EDT AGE/SEX: 32 years / Male INDICATIONS: Posterior fixation of pelvis fractures CLINICAL DATA: This is the patient's initial encounter. Patient reports that signs and symptoms have been present for 1 day and indicates a pain score of Nonresponsive. MEDICAL/SURGICAL HISTORY: Non-responsive. Non-responsive. COMPARISON: No prior exams available for comparison. FINDINGS: Intraoperative examination demonstrates multiple surgical screws traversing the sacrum with excellent anatomic alignment of the bony structures. CONCLUSION: Intact intraoperative examination. Electronically signed by: Albaro Lund MD 04/28/2018 5:23 PM EDT
[2018-04-28] MEDS ORDERED: VECURONIUM BROMIDE 20 MG VIAL ONE (18:04)
[2018-04-28 18:17] LABS: HEMATOCRIT 23.5 % (39.0-51.0); HEMOGLOBIN 7.8 GM/DL (13.0-17.0)
[2018-04-28] MEDS ORDERED: DO NOT ADM ANY ANTICOAGULANT DRUGS PRN (18:38)
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
[2018-04-28] MEDS ORDERED: TERBUTALINE INJ 1 MG/ML AMP SQ PRN (21:15)
[2018-04-28 22:54] LABS: AUTOMATED NEUTROPHIL # 23.3 TH/MM3 (1.8-7.7); BASOPHIL # 0.1 TH/MM3 (0-0.2); BASOPHIL % 0.3 % (0.0-2.0); EOSINOPHIL # 0.1 TH/MM3 (0-0.4); EOSINOPHIL % 0.3 % (0.0-4.0); HEMATOCRIT 29.9 % (39.0-51.0); HEMOGLOBIN 9.7 GM/DL (13.0-17.0); LYMPH % 4.2 % (9.0-44.0); LYMPHOCYTE # 1.1 TH/MM3 (1.0-4.8); MEAN CELL VOLUME 90.6 FL (80.0-100.0); MEAN CORPUSCULAR HEMOGLOBIN 29.5 PG (27.0-34.0); MEAN CORPUSCULAR HGB CONC 32.6 % (32.0-36.0); MEAN PLATELET VOLUME 8.5 FL (7.0-11.0); MONO % 4.2 % (0.0-8.0); MONOCYTE # 1.1 TH/MM3 (0-0.9); PLATELET COUNT 175 TH/MM3 (150-450); RED CELL DISTRIBUTION WIDTH 14.6 % (11.6-17.2); WHITE BLOOD COUNT 25.7 TH/MM3 (4.0-11.0)
[2018-04-28 23:13] LABS: ALBUMIN 1.1 GM/DL (3.4-5.0); BICARBONATE 11.3 MEQ/L (21.0-32.0); CALCIUM 7.3 MG/DL (8.5-10.1); CREATININE 8.63 MG/DL (0.60-1.30); TOTAL BILIRUBIN ADULT 1.6 MG/DL (0.2-1.0); TOTAL PROTEIN 4.2 GM/DL (6.4-8.2)
[2018-04-28] MEDS ORDERED: SODIUM BICARBONATE 8.4% SOLN 50 MEQ/50 ML VIAL IV SCH (23:22)
[2018-04-28] MEDS ORDERED: CALCIUM GLUCONATE 10% 1 GM/10 ML VIAL IV SCH (23:22)
[2018-04-28 23:23] LABS: BANDS 6 % (0-6); LYMPHOCYTES 6 % (9-44); METAMYELOCYTES 9 % (0-1); MONOCYTES 3 % (0-8); NEUTROPHIL # MANUAL DIFF 23.4 TH/MM3 (1.8-7.7); POLYS (SEG NEUTROPHILS) 76 % (16-70)
[2018-04-28 23:24] LABS: BURR CELLS 1+ (NORMAL)
[2018-04-28 23:25] LABS: TOXIC GRANULATION 2+ (NORMAL)
[2018-04-28] MEDS ORDERED: SODIUM BICARBONATE 8.4% INJ 50 MEQ/50 ML SYR ONE (23:36)
[2018-04-29] VITALS: BP 117/56; PULSE 108; RESP 14; TEMP 97.5; O2SAT 96
[2018-04-29] MEDS: PHENYLEPHRINE 40 MG in D5W 500 ML IV PRN ×2 (00:05→03:59)
[2018-04-29 01:50] VITALS: O2SAT 100
[2018-04-29 02:00] VITALS: PULSE 120
[2018-04-29] MEDS ORDERED: DEXTROSE 50% IN WATER 50 ML VIAL(D50) IV SCH (02:00)
[2018-04-29] MEDS ORDERED: INSULIN HUMAN REGULAR 1,000 UNITS/10 ML VIAL IV PUSH SCH (02:00)
[2018-04-29] MEDS: MAGNESIUM HYDROXIDE SUSP 30 ML CUP PO SCH (03:30)
[2018-04-29] MEDS: fentaNYL DRIP 250 ML IV PRN (03:47)
[2018-04-29 04:00] VITALS: BP 105/56; PULSE 124; RESP 25; TEMP 97.5; O2SAT 96
--- NOTE | 2018-04-29 04:20 | RADRPT ---
EXAM DATE: 04/29/2018 3:48 AM EDT AGE/SEX: 32 years / Male INDICATIONS: Shortness of breath CLINICAL DATA: This is the patient's subsequent encounter. Patient reports that signs and symptoms h ave been present for 1 week and indicates a pain score of Nonresponsive. MEDICAL/SURGICAL HISTORY: Non-responsive. Non-responsive. COMPARISON: C, CHEST SINGLE AP, 04/28/2018. . FINDINGS: Endotracheal tube and nasogastric tube in good position. Right central line in superior vena cava. Le ft basilar airspace disease is slightly improved from April 28. Minimal right basilar density. CONCLUSION: Left basilar airspace disease slightly improved. Support apparatus unchanged. Electronically signed by: Ubaldo Albert MD 04/29/2018 4:19 AM EDT
[2018-04-29 04:27] LABS: AUTOMATED NEUTROPHIL # 19.7 TH/MM3 (1.8-7.7); BASOPHIL # 0.1 TH/MM3 (0-0.2); BASOPHIL % 0.2 % (0.0-2.0); EOSINOPHIL % 0.1 % (0.0-4.0); HEMATOCRIT 24.3 % (39.0-51.0); HEMOGLOBIN 8.3 GM/DL (13.0-17.0); LYMPH % 4.6 % (9.0-44.0); MEAN CELL VOLUME 87.9 FL (80.0-100.0); MEAN CORPUSCULAR HGB CONC 34.1 % (32.0-36.0); MEAN PLATELET VOLUME 8.9 FL (7.0-11.0); MONO % 6.4 % (0.0-8.0); MONOCYTE # 1.4 TH/MM3 (0-0.9); NEUT % 88.7 % (16.0-70.0); PLATELET COUNT 173 TH/MM3 (150-450); RED BLOOD COUNT 2.76 MIL/MM3 (4.50-5.90); RED CELL DISTRIBUTION WIDTH 14.2 % (11.6-17.2); WHITE BLOOD COUNT 22.2 TH/MM3 (4.0-11.0)
[2018-04-29 04:33] VITALS: O2SAT 100
[2018-04-29 05:03] LABS: BANDS 9 % (0-6); LYMPHOCYTES 7 % (9-44); METAMYELOCYTES 2 % (0-1); MONOCYTES 1 % (0-8); MYELOCYTES 2 % (0-0); NEUTROPHIL # MANUAL DIFF 20.2 TH/MM3 (1.8-7.7); POLYS (SEG NEUTROPHILS) 78 % (16-70)
[2018-04-29 05:04] LABS: SPHEROCYTES OCC (NORMAL); TOXIC GRANULATION 2+ (NORMAL)
[2018-04-29 05:05] LABS: DOHLE BODIES PRESENT (NONE SEEN)
[2018-04-29] MEDS ORDERED: ALBUMIN 5% INJ 250 ML IV ONE (05:08)
[2018-04-29 05:10] LABS: BICARBONATE 12.7 MEQ/L (21.0-32.0); CALCIUM 6.9 MG/DL (8.5-10.1); CALCIUM-PROTEIN CORRECTED 8.7 MG/DL (8.5-10.1); CREATININE 8.81 MG/DL (0.60-1.30); RANDOM VANCOMYCIN 11.5 COMMENT; TOTAL BILIRUBIN ADULT 1.2 MG/DL (0.2-1.0); TOTAL PROTEIN 3.9 GM/DL (6.4-8.2)
[2018-04-29 05:32] VITALS: BP 84/59; PULSE 107; RESP 19; TEMP 100.2; O2SAT 98
[2018-04-29] MEDS ORDERED: DEXTROSE 50% IN WATER 50 ML SYRINGE ONE (05:32)
[2018-04-29] MEDS ORDERED: CALCIUM GLUCONATE 10% 1 GM/10 ML VIAL ONE (05:32)
[2018-04-29] MEDS ORDERED: SODIUM CHLOR 0.9% 1000 ML INJ 1,000 ML IV ONE (05:45)
[2018-04-29] MEDS ORDERED: ALBUMIN 5% INJ 500 ML IV ONE (05:45)
--- NOTE | 2018-04-29 05:59 | HHI.PR ---
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 Dialysis nurse paged and told to come in stat to do dialysis for the hyperkalemia. Orders for dialysis are in. Also advised the ICU nurse to put in orders for insulin , dextrose, calcium gluconate and Albuterol and that I do not cross cover. Objective Vital Signs Date Time Temp Pulse Resp B/P (MAP) Pulse Ox O2 Delivery O2 Flow Rate FiO2 04/29/18 05:32 100.2 107 19 84/59 98 04/29/18 04:33 100 35 04/29/18 03:59 123 99/50 04/29/18 02:00 120 04/29/18 01:50 100 35 04/29/18 00:05 108 117/56 04/29/18 00:00 35 04/29/18 00:00 97.5 108 14 117/56 (76) 96 04/29/18 00:00 108 04/28/18 22:45 95 35 04/28/18 22:00 106 04/28/18 20:38 98.8 106 14 104/54 100 04/28/18 20:11 100 35 04/28/18 20:00 35 04/28/18 20:00 114 04/28/18 20:00 99.0 114 14 97/51 (66) 100 04/28/18 19:57 99.0 114 14 95/51 100 04/28/18 18:39 100 35 04/28/18 14:10 99 100 04/28/18 12:00 99 04/28/18 12:00 35 04/28/18 12:00 100.0 99 14 142/74 (96) 100 04/28/18 10:09 100 35 04/28/18 10:00 108 04/28/18 08:00 100 04/28/18 08:00 35 04/28/18 08:00 100.0 100 14 149/75 (99) 100 04/28/18 07:59 100 35 04/28/18 06:00 103 I/O 04/28/18 04/28/18 04/28/18 04/29/18 04/29/18 04/29/18 07:00 15:00 23:00 07:00 15:00 23:00 Intake Total 833 ml 5100 ml Output Total 710 ml 1000 ml Balance 123 ml 4100 ml Intake IV Total 700 ml Tube Feeding 133 ml Packed Cells 1600 ml Other 3500 ml Output Urine Total 10 ml Stool Total 0 ml Drainage Total 700 ml Estimated Blood Loss 1000 ml Result Diagram: 04/29/18 0408 04/29/18 0408 Joseph Corona MD Apr 29, 2018 05:59
[2018-04-29] MEDS ORDERED: PHENYLEPHRINE 40 MG in D5W 500 ML IV PRN (06:00)
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
== END 2018-04-29 10:15 | disposition expired | DRG 955 ==
LOC: NEPI 01:21 → EDBD 02:17 → NEDA 02:17 → HPAC 04:04 → N03A 10:39
PROVIDERS: ADMIT Surgery Trauma Surgery; ATTEND Surgery Trauma Surgery
PROC: 0QS205Z Reposition Right Pelvic Bone with External Fixation Device, Open Approach (ICD-10-PCS; 2018-04-21)
PROC: 0QB30ZZ Excision of Left Pelvic Bone, Open Approach (ICD-10-PCS; 2018-04-21)
PROC: 041N09Q Bypass Left Popliteal Artery to Lower Extremity Artery with Autologous Venous Tissue, Open Approach (ICD-10-PCS; 2018-04-21)
PROC: 06BQ0ZZ Excision of Left Saphenous Vein, Open Approach (ICD-10-PCS; 2018-04-21)
PROC: 0KNT0ZZ Release Left Lower Leg Muscle, Open Approach (ICD-10-PCS; 2018-04-21)
PROC: 0KNT0ZZ Release Left Lower Leg Muscle, Open Approach (ICD-10-PCS; 2018-04-21)
PROC: 0KNT0ZZ Release Left Lower Leg Muscle, Open Approach (ICD-10-PCS; 2018-04-21)
PROC: 30233K1 Transfusion of Nonautologous Frozen Plasma into Peripheral Vein, Percutaneous Approach (ICD-10-PCS; 2018-04-21)
PROC: 30233N1 Transfusion of Nonautologous Red Blood Cells into Peripheral Vein, Percutaneous Approach (ICD-10-PCS; 2018-04-21)
PROC: 6A551Z2 Pheresis of Platelets, Multiple (ICD-10-PCS; 2018-04-21)
PROC: 0SSDXZZ Reposition Left Knee Joint, External Approach (ICD-10-PCS; 2018-04-21)
PROC: 4A103BD Monitoring of Intracranial Pressure, Percutaneous Approach (ICD-10-PCS; 2018-04-21)
PROC: 04LE3DZ Occlusion of Right Internal Iliac Artery with Intraluminal Device, Percutaneous Approach (ICD-10-PCS; 2018-04-21)
PROC: 0D1N0Z4 Bypass Sigmoid Colon to Cutaneous, Open Approach (ICD-10-PCS; 2018-04-21)
PROC: 5A1955Z Respiratory Ventilation, Greater than 96 Consecutive Hours (ICD-10-PCS; principal; 2018-04-21 04:39)
PROC: 00H032Z Insertion of Monitoring Device into Brain, Percutaneous Approach (ICD-10-PCS; 2018-04-21 04:39)
PROC: 0QB20ZZ Excision of Right Pelvic Bone, Open Approach (ICD-10-PCS; 2018-04-21 04:39)
PROC: 0QS Lower Bones, Reposition (ICD-10-PCS; 2018-04-21 04:39)
PROC: 0HB0XZZ Excision of Scalp Skin, External Approach (ICD-10-PCS; 2018-04-22)
PROC: 0HQ0XZZ Repair Scalp Skin, External Approach (ICD-10-PCS; 2018-04-22)
PROC: 0DQV0ZZ Repair Mesentery, Open Approach (ICD-10-PCS; 2018-04-24)
PROC: 0HB7XZZ Excision of Abdomen Skin, External Approach (ICD-10-PCS; 2018-04-24)
PROC: 3E1M38Z Irrigation of Peritoneal Cavity using Irrigating Substance, Percutaneous Approach (ICD-10-PCS; 2018-04-24)
PROC: 05H633Z Insertion of Infusion Device into Left Subclavian Vein, Percutaneous Approach (ICD-10-PCS; 2018-04-24)
PROC: 5A1D70Z Performance of Urinary Filtration, Intermittent, Less than 6 Hours Per Day (ICD-10-PCS; 2018-04-24)
PROC: 0DTJ0ZZ Resection of Appendix, Open Approach (ICD-10-PCS; 2018-04-26)
PROC: 0WQF0ZZ Repair Abdominal Wall, Open Approach (ICD-10-PCS; 2018-04-26)
PROC: 3E1M38Z Irrigation of Peritoneal Cavity using Irrigating Substance, Percutaneous Approach (ICD-10-PCS; 2018-04-26)
PROC: 3E10X8Z Irrigation of Skin and Mucous Membranes using Irrigating Substance (ICD-10-PCS; 2018-04-26)
PROC: 0QS304Z Reposition Left Pelvic Bone with Internal Fixation Device, Open Approach (ICD-10-PCS; 2018-04-28)
PROC: 0QS204Z Reposition Right Pelvic Bone with Internal Fixation Device, Open Approach (ICD-10-PCS; 2018-04-28)
PROC: 0SS Lower Joints, Reposition (ICD-10-PCS; 2018-04-28)
PROC: 0KBL0ZZ Excision of Left Abdomen Muscle, Open Approach (ICD-10-PCS; 2018-04-28)
PROC: 0KBT0ZZ Excision of Left Lower Leg Muscle, Open Approach (ICD-10-PCS; 2018-04-28)
PROC: 0KBK0ZZ Excision of Right Abdomen Muscle, Open Approach (ICD-10-PCS; 2018-04-28)
PROC: 0QW Lower Bones, Revision (ICD-10-PCS; 2018-04-28)
PROC: 5A12012 Performance of Cardiac Output, Single, Manual (ICD-10-PCS; 2018-04-29)
PROC: 5A2204Z Restoration of Cardiac Rhythm, Single (ICD-10-PCS; 2018-04-29)
DX: S06.5X9A Traumatic subdural hemorrhage with loss of consciousness of unspecified duration, initial encounter (principal); S35.512A Injury of left iliac artery, initial encounter; S32.811B Multiple fractures of pelvis with unstable disruption of pelvic ring, initial encounter for open fracture; J96.00 Acute respiratory failure, unspecified whether with hypoxia or hypercapnia; T79.4XXA Traumatic shock, initial encounter; S72.402A Unspecified fracture of lower end of left femur, initial encounter for closed fracture; N17.9 Acute kidney failure, unspecified; S85.01 Laceration of popliteal artery; Z99.11 Dependence on respirator [ventilator] status; S32.049A Unspecified fracture of fourth lumbar vertebra, initial encounter for closed fracture; S32.059A Unspecified fracture of fifth lumbar vertebra, initial encounter for closed fracture; D62 Acute posthemorrhagic anemia; S82.109A Unspecified fracture of upper end of unspecified tibia, initial encounter for closed fracture; M62.82 Rhabdomyolysis; E87.2 Acidosis; S36.899A Unspecified injury of other intra-abdominal organs, initial encounter; J98.11 Atelectasis; S83.105A Unspecified dislocation of left knee, initial encounter; S02.401A Maxillary fracture, unspecified side, initial encounter for closed fracture; S02.80XA Fracture of other specified skull and facial bones, unspecified side, initial encounter for closed fracture; S02.0XXB Fracture of vault of skull, initial encounter for open fracture; S01.01XA Laceration without foreign body of scalp, initial encounter; V03.10XA Pedestrian on foot injured in collision with car, pick-up truck or van in traffic accident, initial encounter; Z86.14 Personal history of Methicillin resistant Staphylococcus aureus infection; S82.832A Other fracture of upper and lower end of left fibula, initial encounter for closed fracture; S02.2XXA Fracture of nasal bones, initial encounter for closed fracture; S39.093A Other injury of muscle, fascia and tendon of pelvis, initial encounter; G93.89 Other specified disorders of brain; D72.829 Elevated white blood cell count, unspecified; E87.5 Hyperkalemia; F20.9 Schizophrenia, unspecified; Z99.2 Dependence on renal dialysis; I49.01 Ventricular fibrillation
CPT/HCPCS: 36247; 36248; 36430; 36556; 37244; 51610; 51702; 61210; 70450; 70486; 71045; 71260; 72125; 72129; 72132; 72170; 72190; 73551; 73560; 74018; 74177; 75716; 75736; 75774; 76000; 76937; 77001; 80048; 80053; 80069; 80074; 80202; 81001; 82550; 82552; 82805; 82948; 83605; 83735; 84155; 85007; 85014; 85018; 85025; 85027; 85384; 85610; 85730; 86850; 86900; 86901; 86920; 86927; 86965; 87015; 87070; 87086; 87102; 87116; 87205; 87206; 87641; 88304; 90471; 90935; 93005; 94002; 94003; 94640; 94664; 96374; 96375; 96376; 99291; C1713; C1725; C1752; C1757; C1765; C1769; C1887; C1894; G0390; J0131; J0610; J0690; J1100; J1580; J1644; J1815; J1953; J2175; J2250; J2370; J2543; J2720; J3010; J3370; J7030; J7040; J7050; J7060; J7120; L1830; P9016; P9017; P9035; P9045; Q9967